=== PATIENT | female | born 1950 | race Caucasian/White ===

== ENCOUNTER 2018-07-08 17:33 | Emergency (ER) | payer MEDICARE, BC, SELFPAY ==
[2018-07-08 17:37] VITALS: BP 147/116; PULSE 96; RESP 16; TEMP 36.7; O2SAT 96
--- NOTE | 2018-07-08 17:40 | W.ED.GENAD ---
Discharge Plan Disposition Patient Disposition: HOME Condition: Stable Discharge Details Chief Complaint: RespSymp Clinical Impression: Asthma exacerbation in COPD Primary Care Provider: Aga Osman ED Provider: Samuel Akins Home Meds and New Rx's Prescriptions: New prednisone 20 mg tablet 20 mg PO DAILY 4 Days Qty: 4 RF: 0 azithromycin 250 mg tablet 250 mg PO DAILY 4 Days Qty: 4 RF: 0 Continued Spiriva with HandiHaler 18 mcg capsule, w/inhalation device 1 cap Inhalation DAILY Qty: 90 RF: 12 Advair Diskus 250-50 mcg/dose blister with device 1 inh Inhalation BID Qty: 180 RF: 12 ipratropium-albuterol [DuoNeb] 3 ML solution for nebulization 3 ml Inhalation QID PRNRF: 0 nebulizers [NasoNeb Nasal Nebulizer] 1 EACH misc 1 ea Miscellaneous PRN RF: 0 lysine [L-Lysine] 500 MG tablet 500 mg PO TID PRNRF: 0 ascorbic acid (vitamin C) [Vitamin C] 500 MG tablet 500 mg PO DAILY RF: 0 ECHINACEA \T\ GOLDENSEAL CAP 1 EACH capsule 1 ea PO DAILY PRNRF: 0 multivitamin [Daily Multiple] 1 EACH tablet 1 ea PO DAILY RF: 0 calcium carbonate-vitamin D3 1 EACH tablet 1 ea PO DAILY RF: 0 cholecalciferol (vitamin D3) [Vitamin D3] 400 UNIT capsule 3 cap PO DAILY RF: 0 albuterol sulfate 8.5 GM HFA aerosol inhaler 2 puff Inhalation QID PRNQty: 3 RF: 12 Flovent HFA 12 GM HFA aerosol inhaler 2 puff Inhalation BID Qty: 3 RF: 12 Discharge Instructions Instructions: COPD (Chronic Obstructive Pulmonary Disease) (ED) Additional Instructions: follow up with your primary care provider within 1 week if you have worsening shortness of breath return to the emergency department for exam Medical Decision Making 67 yo female with hx of copd, former smoker, comes in with chief complaint of shortness of breath and productive cough starting today. Denies recent travel, chest pain/pressure, leg swelling. Has no edema on exam, no calf pain and has findings consistent with copd (wheezing in all lung [place]) so doubt PE at this time. No distant heart sounds so doubt pericardial effusion. Will treat as copd exacerbation with azithromycin/steroids/nebs and also check influenza swab pt only has mild wheezing at the apices bilaterally now, speaking in full sentences, feels well enough to go home. advised f/u with pcp and return precautions given Differential Diagnosis copd, influenza, pna HPI General Mode of arrival: ambulatory. Date/Time Provider Initiated Documentation: 07/08/18 17:34. Limitations to Documentation: no limitations. Information obtained by: patient. History of Present Illness 67 year old F presents to the emergency department with the chief complaint of cough and shortness of breath, described as moderate, Patient started experiencing this hour(s) (6) and it has been constant. No relieving factors improve symptom(s), No exacerbating factors reported . Patient notes no other symptoms.. Patient did receive the following treatments prior to arrival, other (albuterol) Related Data Home Medications Medication Instructions Recorded Confirmed ipratropium-albuterol [DuoNeb] 3 ml INHALATION QID PRN 05/05/13 07/08/18 lysine [L-Lysine] 500 mg PO TID PRN 05/05/13 07/08/18 nebulizers [NasoNeb Nasal ea 05/05/13 06/02/18 Nebulizer] Echinacea \T\ Goldenseal Cap 1 ea PO DAILY PRN 09/01/13 07/08/18 ascorbic acid (vitamin C) [Vitamin 500 mg PO DAILY 09/01/13 07/08/18 C] albuterol sulfate 2 puff INHALATION QID PRN #3 04/19/15 07/08/18 inhaler calcium carbonate-vitamin D3 1 ea PO DAILY 04/19/15 07/08/18 cholecalciferol (vitamin D3) 3 cap PO DAILY 04/19/15 07/08/18 [Vitamin D3] multivitamin [Daily Multiple] 1 ea PO DAILY 04/19/15 07/08/18 Flovent HFA 2 puff INHALATION BID #3 inhaler 10/22/16 07/08/18 fluticasone 250 mcg-salmeterol 50 1 inh INHALATION BID #180 each 06/02/18 07/08/18 mcg/dose blistr powdr for inhalation tiotropium bromide 18 mcg capsule 1 cap INHALATION DAILY #90 inh 06/02/18 07/08/18 with inhalation device azithromycin 250 mg PO DAILY 4 Days #4 tab 07/08/18 prednisone 20 mg PO DAILY 4 Days #4 tab 07/08/18 Previous Rx's Medication Instructions Recorded fluticasone 250 mcg-salmeterol 50 1 inh INHALATION BID #180 each 06/02/18 mcg/dose blistr powdr for inhalation tiotropium bromide 18 mcg capsule 1 cap INHALATION DAILY #90 inh 06/02/18 with inhalation device azithromycin 250 mg PO DAILY 4 Days #4 tab 07/08/18 prednisone 20 mg PO DAILY 4 Days #4 tab 07/08/18 Allergies Allergy/AdvReac Type Severity Reaction Status Date / Time venlafaxine AdvReac Intermediate NAUSEA Unverified 07/08/18 17:41 General Stated Complaint: RespSymp EWELINA: 3 Review of Systems Review of Systems All systems reviewed & are unremarkable except as noted in HPI and below Constitutional Denies weakness ENT Denies change in voice Cardiovascular Denies chest pain Gastrointestinal Denies abdominal pain, Denies nausea and Denies vomiting Genitourinary Denies dysuria Musculoskeletal Denies joint swelling Integumentary/Breasts Denies rash Neurologic Denies weakness [facility] Surgical History Ligation of fallopian tube (~1984) Family History Mother Essential hypertension Hyperlipidemia Father Essential hypertension Heart disease Hyperlipidemia Sister No problems noted. Sister Hyperlipidemia Cancer of skin of leg Brother Essential hypertension Paternal Grandfather Essential hypertension Heart disease Maternal Grandmother Pulmonary emphysema Paternal Grandmother Pulmonary emphysema FAMILY HISTORY Chronic obstructive lung disease Son No problems noted. Daughter No problems noted. Social History current occupational status: retired pets and animals: Yes pets and animals: cat(s) frequency: does not exercise Smoking/Tobacco Use Status: Former Tobacco Use quit date: 05/18/04 alcohol intake: current alcohol intake frequency: a few times a week Alcohol type: beer substance use type: does not use connie/mu-ism: Yazidism special connie needs: No Exam Const General: no acute distress Orientation: alert HENMT Head: normal to inspection Ears: external ears normal General nose exam: external nose normal Mouth: moist mucous membranes Eyes General: appearance normal, both eyes and all related structures Neck Neck: normal visual inspection Resp Effort & Inspection: normal respiratory effort and able to speak in complete sentences Cardio Rate: regular rate Skin General skin exam: no rashes or lesions noted Neuro General: alert and oriented x3 Extrem General: normal to inspection Psych Mental Status: mental status grossly normal Course Vital Signs Temperature 36.7 C 07/08/18 17:37 Pulse 96 H 07/08/18 17:37 Respiratory Rate 16 07/08/18 17:37 Blood Pressure 147/116 H 07/08/18 17:37 Pulse Oximetry 96 07/08/18 17:37 Temperature 36.7 C 07/08/18 17:37 Temperature Source Skin 07/08/18 17:37 Pulse 96 H 07/08/18 17:37 Respiratory Rate 16 07/08/18 17:37 Blood Pressure 147/116 H 07/08/18 17:37 Pulse Oximetry 96 07/08/18 17:37 Pain Level 0 07/08/18 17:37
[2018-07-08 17:44] VITALS: BP 118/76
--- NOTE | 2018-07-08 17:44 | ED.GENADUL_ITS ---
Discharge Plan Disposition Patient Disposition: HOME Condition: Stable Discharge Details Chief Complaint: RespSymp Clinical Impression: Asthma exacerbation in COPD Primary Care Provider: Aga Osman ED Provider: Samuel Akins Home Meds and New Rx's Prescriptions: New prednisone 20 mg tablet 20 mg PO DAILY 4 Days Qty: 4 RF: 0 azithromycin 250 mg tablet 250 mg PO DAILY 4 Days Qty: 4 RF: 0 Continued Spiriva with HandiHaler 18 mcg capsule, w/inhalation device 1 cap Inhalation DAILY Qty: 90 RF: 12 Advair Diskus 250-50 mcg/dose blister with device 1 inh Inhalation BID Qty: 180 RF: 12 ipratropium-albuterol [DuoNeb] 3 ML solution for nebulization 3 ml Inhalation QID PRNRF: 0 nebulizers [NasoNeb Nasal Nebulizer] 1 EACH misc 1 ea Miscellaneous PRN RF: 0 lysine [L-Lysine] 500 MG tablet 500 mg PO TID PRNRF: 0 ascorbic acid (vitamin C) [Vitamin C] 500 MG tablet 500 mg PO DAILY RF: 0 ECHINACEA \T\ GOLDENSEAL CAP 1 EACH capsule 1 ea PO DAILY PRNRF: 0 multivitamin [Daily Multiple] 1 EACH tablet 1 ea PO DAILY RF: 0 calcium carbonate-vitamin D3 1 EACH tablet 1 ea PO DAILY RF: 0 cholecalciferol (vitamin D3) [Vitamin D3] 400 UNIT capsule 3 cap PO DAILY RF: 0 albuterol sulfate 8.5 GM HFA aerosol inhaler 2 puff Inhalation QID PRNQty: 3 RF: 12 Flovent HFA 12 GM HFA aerosol inhaler 2 puff Inhalation BID Qty: 3 RF: 12 Discharge Instructions Instructions: COPD (Chronic Obstructive Pulmonary Disease) (ED) Additional Instructions: follow up with your primary care provider within 1 week if you have worsening shortness of breath return to the emergency department for exam Medical Decision Making 67 yo female with hx of copd, former smoker, comes in with chief complaint of shortness of breath and productive cough starting today. Denies recent travel, chest pain/pressure, leg swelling. Has no edema on exam, no calf pain and has findings consistent with copd (wheezing in all lung [place]) so doubt PE at this time. No distant heart sounds so doubt pericardial effusion. Will treat as copd exacerbation with azithromycin/steroids/nebs and also check influenza swab pt only has mild wheezing at the apices bilaterally now, speaking in full sentences, feels well enough to go home. advised f/u with pcp and return precautions given Differential Diagnosis copd, influenza, pna HPI General Mode of arrival: ambulatory . Date/Time Provider Initiated Documentation: 07/08/18 17:34 . Limitations to Documentation: no limitations . Information obtained by: patient . History of Present Illness 67 year old F presents to the emergency department with the chief complaint of cough and shortness of breath, described as moderate, Patient started experiencing this hour(s) (6) and it has been constant. No relieving factors improve sy mptom(s), No exacerbating factors reported . Patient notes no other symptoms.. Patient did receive the following treatments prior to arrival, other (albuterol) Related Data Home Medications Medication Instructions Recorded Confirmed ipratropium-albuterol [DuoNeb] 3 ml INHALATION QID PRN 05/05/13 07/08/18 lysine [L-Lysine] 500 mg PO TID PRN 05/05/13 07/08/18 nebulizers [NasoNeb Nasal ea 05/05/13 06/02/18 Nebulizer] Echinacea \T\ Goldenseal Cap 1 ea PO DAILY PRN 09/01/13 07/08/18 ascorbic acid (vitamin C) [Vitamin 500 mg PO DAILY 09/01/13 07/08/18 C] albuterol sulfate 2 puff INHALATION QID PRN #3 04/19/15 07/08/18 inhaler calcium carbonate-vitamin D3 1 ea PO DAILY 04/19/15 07/08/18 cholecalciferol (vitamin D3) 3 cap PO DAILY 04/19/15 07/08/18 [Vitamin D3] multivitamin [Daily Multiple] 1 ea PO DAILY 04/19/15 07/08/18 Flovent HFA 2 puff INHALATION BID #3 inhaler 10/22/16 07/08/18 fluticasone 250 mcg-salmeterol 50 1 inh INHALATION BID #180 each 06/02/18 07/08/18 mcg/dose blistr powdr for inhalation tiotropium bromide 18 mcg capsule 1 cap INHALATION DAILY #90 inh 06/02/18 1 09/08/17 with inhalation device azithromycin 250 mg PO DAILY 4 Days #4 tab 07/08/18 prednisone 20 mg PO DAILY 4 Days #4 tab 07/08/18 Previous Rx's Medication Instructions Recorded fluticasone 250 mcg-salmeterol 50 1 inh INHALATION BID #180 each 06/02/18 mcg/dose blistr powdr for inhalation tiotropium bromide 18 mcg capsule 1 cap INHALATION DAILY #90 inh 06/02/18 with inhalation device azithromycin 250 mg PO DAILY 4 Days #4 tab 07/08/18 prednisone 20 mg PO DAILY 4 Days #4 tab 07/08/18 Allergies Allergy/AdvReac Type Severity Reaction Status Date / Time venlafaxine AdvReac Intermediate NAUSEA Unverified 07/08/18 17:41 General Stated Complaint: RespSymp EWELINA: 3 Review of Systems Review of Systems All systems reviewed & are unremarkable except as noted in HPI and below Constitutional Denies weakness ENT Denies change in voice Cardiovascular Denies chest pain Gastrointestinal Denies abdominal pain, Denies nausea and Denies vomiting Genitourinary Denies dysuria Musculoskeletal Denies joint swelling Integumentary/Breasts Denies rash Neurologic Denies weakness PFS Surgical History Ligation of fallopian tube (~1984) Family History Mother Essential hypertension Hyperlipidemia Father Essential hypertension Heart disease Hyperlipidemia Sister No problems noted. Sister Hyperlipidemia Cancer of skin of leg Brother Essential hypertension Paternal Grandfather Essential hypertension Heart disease Maternal Grandmother Pulmonary emphysema Paternal Grandmother Pulmonary emphysema FAMILY HISTORY Chronic obstructive lung disease Son No problems noted. Daughter No problems noted. Social History current occupational status: retired pets and animals: Yes pets and animals: cat(s) frequency: does not exercise Smoking/Tobacco Use Status: Former Tobacco Use quit date: 05/18/04 alcohol intake: current alcohol intake frequency: a few times a week Alcohol type: beer substance use type: does not use connie/confucianism: Sabianist special connie needs: No Exam Const General: no acute distress Orientation: alert HENMT Head: normal to inspection Ears: external ears normal General nose exam: external nose normal Mouth: moist mucous membranes Eyes General: appearance normal, both eyes and all related structures Neck Neck: normal visual inspection Resp Effort & Inspection: normal respiratory effort and able to speak in complete sentences Cardio Rate: regular rate Skin General skin exam: no rashes or lesions noted Neuro General: alert and oriented x3 Extrem General: normal to inspection Psych Mental Status: mental status grossly normal Course Vital Signs Temperature 36.7 C 07/08/18 17:37 Pulse 96 H 07/08/18 17:37 Respiratory Rate 16 07/08/18 17:37 Blood Pressure 147/116 H 07/08/18 17:37 Pulse Oximetry 96 07/08/18 17:37 Temperature 36.7 C 07/08/18 17:37 Temperature Source Skin 07/08/18 17:37 Pulse 96 H 07/08/18 17:37 Respiratory Rate 16 07/08/18 17:37 Blood Pressure 147/116 H 07/08/18 17:37 Pulse Oximetry 96 07/08/18 17:37 Pain Level 0 07/08/18 17:37
[2018-07-08] MEDS: predniSONE 20 MG TAB 60 MG PO (17:55)
[2018-07-08] MEDS: Azithromycin 250 MG TAB 500 MG PO (17:55)
[2018-07-08] MEDS: Albuterol/Ipratropium 3 ML UPD VIAL UPD (18:00)
[2018-07-08 18:30] VITALS: RESP 1
[2018-07-08 18:33] VITALS: BP 122/80; PULSE 92; RESP 16; TEMP 36.7; O2SAT 97
== END 2018-07-08 18:33 | disposition home or self-care (01) ==
PROVIDERS: Emergency Provider Emergency Medicine; PCP Family Medicine
DX: J45.901 Unspecified asthma with (acute) exacerbation (principal); J44.9 Chronic obstructive pulmonary disease, unspecified; Z87.891 Personal history of nicotine dependence
CPT/HCPCS: 87449; 94640; 99283; J7512; J7620

== ENCOUNTER 2018-07-09 00:21 | Outpatient (CLI) | payer MEDICARE, BC, SELFPAY ==
--- NOTE | 2018-07-09 12:47 | DI.CTLCSR_ITS ---
SYMPTOMS/DIAGNOSIS: LUNG CANCER SCREENING, H/O NICOTINE, Z87.[address], LOW DOSE LUNG CANCER SCREENING PROTOCOL: CT examination of the chest was performed utilizing low dose lung cancer screening protocol. Today's examination is a baseline examination. Images obtained through the upper abdomen show very poor definition of retroperitoneal fat planes, retroperitoneal adenopathy or tumor not excluded in the upper abdomen. Correlation with contrast enhanced abdominal and pelvic CT recommended. Visualized portions of the liver, spleen and kidneys are unremarkable. There are marked pulmonary emphysematous changes. Ascending aorta is ectatic at about 4.0 cm maximal diameter. Pulmonary arteries appear mildly dilated centrally, raising the possibility of pulmonary arterial hypertension. No gross mediastinal adenopathy or mass seen. No pleural effusion seen. There are multiple small intrapulmonary nodules, including 5 mm noncalcified nodules of the right lower lobe and left lower lobe. There is a 9 x 5 mm in diameter, 7 mm mean diameter, noncalcified nodule in the left lower lobe. No calcified nodule identified. CONCLUSION: 1. Pulmonary emphysematous changes. 2. Incidental findings inconclusive, but worrisome for incompletely images retroperitoneal mass or adenopathy, recommend additional evaluation with abdominal and pelvic IV and oral contrast opacified CT. 3. Multiple noncalcified intrapulmonary nodules, largest 7 mm mean diameter, probably benign but six-month follow-up LDCT recommended. Category 3. Lung-RAD Category: 3- Probably Benign Lung- RAD Management of Findings: 6 month LDCT followup
== END 2018-07-09 00:41 ==
PROVIDERS: PCP Family Medicine; Visit Provider Internal Medicine
DX: Z12.2 Encounter for screening for malignant neoplasm of respiratory organs (principal); J43.9 Emphysema, unspecified; R91.8 Other nonspecific abnormal finding of lung field; R59.0 Localized enlarged lymph nodes
CPT/HCPCS: G0297

== ENCOUNTER 2018-07-14 00:10 | Outpatient (CLI) | payer MEDICARE, BC, SELFPAY ==
--- NOTE | 2018-07-14 08:12 | DI.CT_ITS ---
SYMPTOM/DIAGNOSIS: F/U ABNL CT SCAN, RETROPERITONEAL MASS, R19.[address]: Comparison is made with low dose screening chest CT of 07/09/18 with questioned retroperitoneal abnormality. Images were performed from the lung bases through the ischial tuberosities after IV and oral contrast. The patient has very little intra-abdominal fat. No retroperitoneal abnormality is identified. The findings on the chest CT correspond to unopacified loops of bowel. The liver, spleen, gallbladder and kidneys are unremarkable. There are a few scattered tiny pancreatic calcifications. The uterus is retroverted. The bladder and ovaries are unremarkable. No bowel dilatation or inflammatory changes are seen. The aorta shows calcification but is normal in diameter. Degenerative changes are seen in the spine. IMPRESSION: No acute abnormality is seen in the abdomen or pelvis. There is no evidence of a retroperitoneal abnormality.
[2018-07-14] MEDS: Breeza Beverage 473 ML BTL PO ×2 (08:41→08:43)
[2018-07-14] MEDS: Omnipaque 350 MG/ML 50 ML BTL IJ (08:42)
[2018-07-14 08:50] LABS: CREATININE 0.78 mg/dL (0.55-1.02)
[2018-07-14] MEDS: Omnipaque 350 MG/ML 100 ML BTL IJ (10:04)
[2018-07-17 15:13] LABS: Alpha-1-Antitrypsin 123 mg/dL (100 - 190); Alpha-1-Antitrypsin Phenotype MS bands
== END 2018-07-14 00:30 ==
PROVIDERS: Internal Medicine; PCP Family Medicine; Visit Provider Family Medicine
DX: R19.00 Intra-abdominal and pelvic swelling, mass and lump, unspecified site (principal); K86.89 Other specified diseases of pancreas; J44.9 Chronic obstructive pulmonary disease, unspecified
CPT/HCPCS: 36415; 74177; 82103; 82104; 82565; J3490; Q9967

== ENCOUNTER 2018-10-28 12:50 | Emergency (ER) | payer MEDICARE, BC, SELFPAY ==
--- NOTE | 2018-10-28 12:50 | W.ED.GENAD ---
Discharge Plan Disposition Patient Disposition: HOME Condition: Stable Discharge Details Chief Complaint: Orthopedic Clinical Impression: Left ankle sprain Primary Care Provider: Aga Osman ED Provider: Samuel Akins Home Meds and New Rx's Prescriptions: No Action azithromycin 250 mg tablet See Rx Instructions PO .COMPLEX Qty: 6 RF: 0 prednisone 20 mg tablet See Rx Instructions PO DAILY Qty: 11 RF: 0 Prevnar 13 (PF) 0.5 mL syringe 0.5 ml IM ONCE Qty: 0.5 RF: 0 Trelegy Ellipta 100-62.5-25 mcg blister with device 1 inh IH DAILY RF: 0 ipratropium-albuterol [DuoNeb] 3 ML solution for nebulization 3 ml Inhalation QID PRNRF: 0 NasoNeb Nasal Nebulizer 1 EACH misc 1 ea Miscellaneous PRN RF: 0 lysine [L-Lysine] 500 MG tablet 500 mg PO TID PRNRF: 0 ascorbic acid (vitamin C) [Vitamin C] 500 MG tablet 500 mg PO DAILY RF: 0 ECHINACEA \T\ GOLDENSEAL CAP 1 EACH capsule 1 ea PO DAILY PRNRF: 0 multivitamin [Daily Multiple] 1 EACH tablet 1 ea PO DAILY RF: 0 calcium carbonate-vitamin D3 1 EACH tablet 1 ea PO DAILY RF: 0 cholecalciferol (vitamin D3) [Vitamin D3] 400 UNIT capsule 3 cap PO DAILY RF: 0 albuterol sulfate 8.5 GM HFA aerosol inhaler 2 puff Inhalation QID PRNQty: 3 RF: 12 Flovent HFA 12 GM HFA aerosol inhaler 2 puff Inhalation BID Qty: 3 RF: 12 Discharge Instructions Instructions: Ankle Sprain (ED) Medical Decision Making 68 yo female comes in with left ankle pain. She tripped on the bottom step in her cellar and twisted her left ankle per pt. Denies hitting head or loc, no headache or neck pain even on rom so do not feel head or neck imaging indicated. She denies any preceding symptoms to suggest presyncope/syncope so do not feel w/u for this inidicated, she states it was purely mechanical. She has pain over the lateral malleolus, does have full rom but with pain and can bear weight but also with pain. No pain over metatarsals. Ssupect sprain but will xray to eval for fx. xray neg on my read, will tx as ankle sprain. Advised f/u with pcp in a week if no improvement. Already has aircast and crutches Differential Diagnosis fx, contusion, sprain, strain Imaging Data Radiologic Study: Attestation: I personally reviewed and interpreted this imaging study as follows: Imaging: X-Ray My impression: no acute findings HPI General Mode of arrival: ambulatory (with crutches). Date/Time Provider Initiated Documentation: 10/28/18 12:50. Limitations to Documentation: no limitations. Information obtained by: patient. History of Present Illness 68 year old F presents to the emergency department with the chief complaint of left ankle pain, described as moderate, Quality is described as aching, and is localized to the left and lower extremity. Patient reports no radiation. Patient started experiencing this hour(s) (1) and it has been constant. Rest improves symptom(s), Movement worsens symptoms . Patient notes no other symptoms.. Related Data Home Medications Medication Instructions Recorded Confirmed NasoNeb Nasal Nebulizer ea 05/05/13 10/07/18 ipratropium-albuterol [DuoNeb] 3 ml INHALATION QID PRN 05/05/13 10/28/18 lysine [L-Lysine] 500 mg PO TID PRN 05/05/13 10/28/18 Echinacea \T\ Goldenseal Cap 1 ea PO DAILY PRN 09/01/13 10/07/18 ascorbic acid (vitamin C) [Vitamin 500 mg PO DAILY 09/01/13 10/28/18 C] albuterol sulfate 2 puff INHALATION QID PRN #3 04/19/15 10/28/18 inhaler calcium carbonate-vitamin D3 1 ea PO DAILY 04/19/15 10/28/18 cholecalciferol (vitamin D3) 3 cap PO DAILY 04/19/15 10/28/18 [Vitamin D3] multivitamin [Daily Multiple] 1 ea PO DAILY 04/19/15 10/28/18 Flovent HFA 2 puff INHALATION BID #3 inhaler 10/22/16 10/28/18 fluticasone fur. 100 mcg-umeclid 1 inh IH DAILY 07/10/18 10/28/18 62.5 mcg-vilant 25 mcg inhalat.powder azithromycin 250 mg tablet See Rx Instructions PO .COMPLEX #6 10/07/18 10/28/18 tab pneumococcal 13-herminio conj 0.5 ml IM ONCE #0.5 ml 10/07/18 10/28/18 vaccine-dip crm (PF) 0.5 mL IM syringe prednisone 20 mg tablet See Rx Instructions PO DAILY #11 10/07/18 10/28/18 tab Previous Rx's Medication Instructions Recorded azithromycin 250 mg tablet See Rx Instructions PO .COMPLEX #6 10/07/18 tab pneumococcal 13-herminio conj 0.5 ml IM ONCE #0.5 ml 10/07/18 vaccine-dip crm (PF) 0.5 mL IM syringe prednisone 20 mg tablet See Rx Instructions PO DAILY #11 10/07/18 tab Allergies Allergy/AdvReac Type Severity Reaction Status Date / Time venlafaxine AdvReac Intermediate NAUSEA Unverified 10/28/18 12:59 General EWELINA: 3 Review of Systems Review of Systems All systems reviewed & are unremarkable except as noted in HPI and below Constitutional Denies fever(s) Eyes Denies loss of vision Cardiovascular Denies chest pain and Denies dyspnea Respiratory Denies dyspnea Gastrointestinal Denies abdominal pain, Denies nausea and Denies vomiting Integumentary/Breasts Denies rash Neurologic Denies loss of vision PFSH Social History Smoking/Tobacco Use Status: Former Tobacco Use Quit Date: 05/18/04 Alcohol Intake: current Alcohol Intake frequency: a few times a week Alcohol type: beer Drug use: Never Substance use type: does not use Pets and animals: Yes Pets and animals: cat(s) Frequency: does not exercise Haley/Yazidi: Episcopal Special haley needs: No Do you feel safe in your relationship?: Yes Exam Const General: no acute distress Orientation: alert [facility] Head: normal to inspection Ears: external ears normal General nose exam: external nose normal Mouth: moist mucous membranes Eyes General: appearance normal, both eyes and all related structures Neck Neck: normal visual inspection Resp Effort & Inspection: normal respiratory effort and able to speak in complete sentences Cardio Rate: regular rate Skin General skin exam: no rashes or lesions noted Neuro General: alert and oriented x3 Extrem General: normal to inspection and normal capillary refill Psych Mental Status: mental status grossly normal
[2018-10-28 12:55] VITALS: BP 132/80; PULSE 97; RESP 16; TEMP 37; O2SAT 100
--- NOTE | 2018-10-28 13:06 | ED.GENADUL_ITS ---
Discharge Plan Disposition Patient Disposition: HOME Condition: Stable Discharge Details Chief Complaint: Orthopedic Clinical Impression: Left ankle sprain Primary Care Provider: Aga Osman ED Provider: Samuel Akins Home Meds and New Rx's Prescriptions: No Action azithromycin 250 mg tablet See Rx Instructions PO .COMPLEX Qty: 6 RF: 0 prednisone 20 mg tablet See Rx Instructions PO DAILY Qty: 11 RF: 0 Prevnar 13 (PF) 0.5 mL syringe 0.5 ml IM ONCE Qty: 0.5 RF: 0 Trelegy Ellipta 100-62.5-25 mcg blister with device 1 inh IH DAILY RF: 0 ipratropium-albuterol [DuoNeb] 3 ML solution for nebulization 3 ml Inhalation QID PRNRF: 0 NasoNeb Nasal Nebulizer 1 EACH misc 1 ea Miscellaneous PRN RF: 0 lysine [L-Lysine] 500 MG tablet 500 mg PO TID PRNRF: 0 ascorbic acid (vitamin C) [Vitamin C] 500 MG tablet 500 mg PO DAILY RF: 0 ECHINACEA \T\ GOLDENSEAL CAP 1 EACH capsule 1 ea PO DAILY PRNRF: 0 multivitamin [Daily Multiple] 1 EACH tablet 1 ea PO DAILY RF: 0 calcium carbonate-vitamin D3 1 EACH tablet 1 ea PO DAILY RF: 0 cholecalciferol (vitamin D3) [Vitamin D3] 400 UNIT capsule 3 cap PO DAILY RF: 0 albuterol sulfate 8.5 GM HFA aerosol inhaler 2 puff Inhalation QID PRNQty: 3 RF: 12 Flovent HFA 12 GM HFA aerosol inhaler 2 puff Inhalation BID Qty: 3 RF: 12 Discharge Instructions Instructions: Ankle Sprain (ED) Medical Decision Making 68 yo female comes in with left ankle pain. She tripped on the bottom step in her cellar and twisted her left ankle per pt. Denies hitting head or loc, no headache or neck pain even on rom so do not feel head or neck imaging indicated. She denies any preceding symptoms to suggest presyncope/syncope so do not feel w/u for this inidicated, she states it was purely mechanical. She has pain over the lateral malleolus, does have full rom but with pain and can bear weight but also with pain. No pain over metatarsals. Ssupect sprain but will xray to eval for fx. xray neg on my read, will tx as ankle sprain. Advised f/u with pcp in a week if no improvement. Already has aircast and crutches Differential Diagnosis fx, contusion, sprain, strain Imaging Data Radiologic Study: Attestation: I personally reviewed and interpreted this imaging study as follows: Imaging: X-Ray My impression: no acute findings HPI General Mode of arrival: ambulatory (with crutches) . Date/Time Provider Initiated Documentation: 10/28/18 12:50 . Limitations to Documentation: no limitations . Information obtained by: patient . History of Present Illness 68 year old F presents to the emergency department with the chief complaint of left ankle pain, described as moderate, Quality is described as aching, and is localized to the left and lower extremity. Patient reports no radiation. Patient started experiencing this hour(s) (1) and it has been constant. Rest improves symptom(s), Movement worsens symptoms . Patient notes no other symptoms.. Related Data Home Medications Medication Instructions Recorded Confirmed NasoNeb Nasal Nebulizer ea 05/05/13 10/07/18 ipratropium-albuterol [DuoNeb] 3 ml INHALATION QID PRN 05/05/13 10/28/18 lysine [L-Lysine] 500 mg PO TID PRN 05/05/13 10/28/18 Echinacea \T\ Goldenseal Cap 1 ea PO DAILY PRN 09/01/13 10/07/18 ascorbic acid (vitamin C) [Vitamin 500 mg PO DAILY 09/01/13 10/28/18 C] albuterol sulfate 2 puff INHALATION QID PRN #3 04/19/15 10/28/18 inhaler calcium carbonate-vitamin D3 1 ea PO DAILY 04/19/15 10/28/18 cholecalciferol (vitamin D3) 3 cap PO DAILY 04/19/15 10/28/18 [Vitamin D3] multivitamin [Daily Multiple] 1 ea PO DAILY 04/19/15 10/28/18 Flovent HFA 2 puff INHALATION BID #3 inhaler 10/22/16 10/28/18 fluticasone fur. 100 mcg-umeclid 1 inh IH DAILY 07/10/18 10/28/18 62.5 mcg-vilant 25 mcg inhalat.powder azithromycin 250 mg tablet See Rx Instructions PO .COMPLEX #6 10/07/18 10/28/18 tab pneumococcal 13-herminio conj 0.5 ml IM ONCE #0.5 ml 10/07/18 10/28/18 vaccine-dip crm (PF) 0.5 mL IM syringe prednisone 20 mg tablet See Rx Instructions PO DAILY #11 10/07/18 10/28/18 tab Previous Rx's Medication Instructions Recorded azithromycin 250 mg tablet See Rx Instructions PO .COMPLEX #6 10/07/18 tab pneumococcal 13-herminio conj 0.5 ml IM ONCE #0.5 ml 10/07/18 vaccine-dip crm (PF) 0.5 mL IM syringe prednisone 20 mg tablet See Rx Instructions PO DAILY #11 10/07/18 tab Allergies Allergy/AdvReac Type Severity Reaction Status Date / Time venlafaxine AdvReac Intermediate NAUSEA Unverified 10/28/18 12:59 General EWELINA: 3 Review of Systems Review of Systems All systems reviewed & are unremarkable except as noted in HPI and below Constitutional Denies fever(s) Eyes Denies loss of vision Cardiovascular Denies chest pain and Denies dyspnea Respiratory Denies dyspnea Gastrointestinal Denies abdominal pain, Denies nausea and Denies vomiting Integumentary/Breasts Denies rash Neurologic Denies loss of vision PFSH Social History Smoking/Tobacco Use Status: Former Tobacco Use Quit Date: 05/18/04 Alcohol Intake: current Alcohol Intake frequency: a few times a week Alcohol type: beer Drug use: Never Substance use type: does not use Pets and animals: Yes Pets and animals: cat(s) Frequency: does not exercise Haley/Scientology: Mosque Special haley needs: No Do you feel safe in your relationship?: Yes Exam Const General: no acute distress Orientation: alert [facility] Head: normal to inspection Ears: external ears normal General nose exam: external nose normal Mouth: moist mucous membranes Eyes General: appearance normal, both eyes and all related structures Neck Neck: normal visual inspection Resp Effort & Inspection: normal respiratory effort and able to speak in complete sentences Cardio Rate: regular rate Skin General skin exam: no rashes or lesions noted Neuro General: alert and oriented x3 Extrem General: normal to inspection and normal capillary refill Psych Mental Status: mental status grossly normal
--- NOTE | 2018-10-28 13:18 | DI.RAD_ITS ---
SYMPTOMS/DIAGNOSIS: PAIN S/P FALL LEFT ANKLE: There is no evidence of a fracture or dislocation.
== END 2018-10-28 13:35 | disposition home or self-care (01) ==
PROVIDERS: Emergency Provider Emergency Medicine; PCP Family Medicine
DX: S93.402A Sprain of unspecified ligament of left ankle, initial encounter (principal)
CPT/HCPCS: 99283; 73610; 99282

== ENCOUNTER 2018-11-10 16:45 | Outpatient (CLI) | payer MEDICARE, BC, SELFPAY ==
--- NOTE | 2018-11-10 15:30 | DI.RAD_ITS ---
SYMPTOMS/DIAGNOSIS: SHORTNESS OF BREATH, CHRONIC OBSTRUCTIVE LUNG DISEASE, J44.9 PA AND LATERAL CHEST: Comparison 02/14/17. The heart size and pulmonary vasculature are stable and within normal limits. The lungs appear hyperinflated and hyperlucent with flattened diaphragms suggesting underlying COPD. There are increased interstitial markings in the left lung base compared to the prior examination. No focal consolidating infiltrates, effusions or pneumothoraces are identified. Mild degenerative changes are seen in the spine. IMPRESSION: 1. Increased interstitial markings in the left lower lobe. This may represent pneumonia or atelectasis. Chronic interstitial disease can not be excluded. 2. COPD.
== END 2018-11-10 17:05 ==
PROVIDERS: PCP Family Medicine; Visit Provider Family Medicine
DX: R06.02 Shortness of breath (principal); J44.9 Chronic obstructive pulmonary disease, unspecified; J98.4 Other disorders of lung
CPT/HCPCS: 71046

== ENCOUNTER 2018-11-12 01:18 | Outpatient (CLI) | payer MEDICARE, BC, SELFPAY ==
--- NOTE | 2018-11-12 13:00 | DI.CT_ITS ---
SYMPTOMS/DIAGNOSIS: COPD, J44.9 CT SCAN OF THE CHEST: CT scan of the chest was performed without intravenous contrast material. Comparison is 07/09/18. There is atherosclerosis of the thoracic aorta which is unchanged in size. There is again seen prominence of the pulmonary arteries which may represent some degree of pulmonary artery hypertension. The heart size is within normal limits. No significant pericardial effusion is seen. No pleural effusion or pneumothorax is identified. Multiple hyperdense lesions are seen throughout the thyroid gland. Thyroid ultrasound may be obtained for further evaluation. No significant thoracic adenopathy is appreciated. The upper abdominal images show calcifications within the pancreas which may reflect chronic pancreatitis. Centrilobular emphysematous changes are seen in the lungs. There are again seen a few noncalcified pulmonary nodules. These are present in the right upper lobe and right and left lower lobes. These are unchanged in size compared to 07/09/18. No new pulmonary nodules are appreciated. The tracheobronchial tree is unremarkable. Scarring or atelectatic changes are again seen in the left lingula. They appear somewhat improved compared to the prior examination. No new focal consolidating infiltrates are present in the lungs. There are degenerative changes seen in the spine. IMPRESSION: 1. Stable pulmonary nodules since 07/09/18. 2. Pulmonary emphysematous change. 3. Multiple thyroid nodules. Nonemergent ultrasound of the thyroid gland may be considered for further evaluation.
== END 2018-11-12 01:38 ==
PROVIDERS: PCP Family Medicine; Visit Provider Internal Medicine
DX: J44.9 Chronic obstructive pulmonary disease, unspecified (principal); R91.8 Other nonspecific abnormal finding of lung field; E04.2 Nontoxic multinodular goiter; K86.89 Other specified diseases of pancreas; J43.9 Emphysema, unspecified
CPT/HCPCS: 71250

== ENCOUNTER 2019-02-09 00:29 | Outpatient (CLI) | payer MEDICARE, BC, SELFPAY ==
--- NOTE | 2019-02-09 13:00 | DI.MAMMO_ITS ---
SYMPTOM/DIAGNOSIS: SCREENING Z12.31 MAMMOGRAMS: Mammograms were interpreted according to the usual protocol including computer analysis with CAD system, tomosynthesis and C view imaging. Comparison with prior examinations. Breast density category D. No suspicious masses or microcalcifications are seen. There is no definite evidence of malignancy. IMPRESSION: Category 1, negative mammogram. Routine screening is recommended. Breast density category D. MQSA ASSESSMENT OF FINDINGS: Negative. Category 1. Patient will receive a letter notifying them of these results. BI-RADS category D. The breasts are extremely dense, which lowers the sensitivity of mammography.
--- NOTE | 2019-02-09 13:00 | DI.US_ITS ---
SYMPTOM/DIAGNOSIS: THYROID NODULE ON CT SCAN OF CHEST. E04.1 THYROID ULTRASOUND: Routine examination was performed. The right lobe measures 4.8 x 1.8 x 1.6 cm. The left lobe measures 4.5 x 1.9 x 1.6 cm. There are numerous thyroid nodules present. The largest on the right is seen in the upper pole and measures 1.1 x 0.8 x 1.0 cm. It is complex with multiple septations. There is some blood flow seen predominantly peripherally. It is well circumscribed. There is a complex mass in the lower pole which measures 1.1 x 0.6 x 1.1 cm. It is predominantly cystic with internal septations. There is some blood flow noted. No associated calcification is seen. It is well circumscribed. There is a 0.6 x 0.6 x 0.8 cm nodule in the mid pole which is mostly cystic but does contain a solid component. There is peripheral vascularity noted. It is well circumscribed. No internal calcification is seen, On the left the largest nodule is seen inferiorly and measures 1.5 x 0.9 x 0.8 cm It is predominantly cystic with internal septations and some blood flow is noted. Several cystic and solid masses are seen in the left lobe. IMPRESSION: Multinodular thyroid gland without definite suspicious nodule seen. The largest on the left measures 1.5 x 0.9 x 0.8 cm. The largest on the right measures 1.1 x 0.6 x 1.1 cm. Follow up ultrasound may be considered to document stability of the nodules.
[2019-02-09 13:25] LABS: TSH (W/Ref FT4) 0.64 uIU/mL (0.36-3.74)
== END 2019-02-09 00:49 ==
PROVIDERS: PCP Family Medicine; Visit Provider Family Medicine
DX: Z12.31 Encounter for screening mammogram for malignant neoplasm of breast (principal); E04.2 Nontoxic multinodular goiter
CPT/HCPCS: 36415; 77063; 77067; 76536; 84443

== ENCOUNTER 2019-06-14 09:25 | Emergency (ER) | payer MEDICARE, BC, SELFPAY ==
[2019-06-14 09:29] VITALS: BP 185/70; PULSE 66; RESP 20; TEMP 35.6; O2SAT 100
--- NOTE | 2019-06-14 10:19 | ED.GENADUL_ITS ---
Discharge Plan Disposition Patient Disposition: HOME Condition: Good Discharge Details Chief Complaint: Laceration Clinical Impression: Laceration Primary Care Provider: Aga Osman ED Provider: Jo Bryant Home Meds and New Rx's Prescriptions: No Action prednisone 20 mg tablet 20 mg PO DAILY PRNRF: 0 Trelegy Ellipta 100-62.5-25 mcg blister with device 1 inh IH DAILY Qty: 90 RF: 4 ipratropium-albuterol [DuoNeb] 3 ML solution for nebulization 3 ml Inhalation QID PRNRF: 0 (DME) NasoNeb Nasal Nebulizer 1 EACH misc 1 ea Miscellaneous PRN RF: 0 lysine [L-Lysine] 500 MG tablet 500 mg PO TID PRNRF: 0 ascorbic acid (vitamin C) [Vitamin C] 500 MG tablet 500 mg PO DAILY RF: 0 ECHINACEA \T\ GOLDENSEAL CAP 1 EACH capsule 1 ea PO DAILY PRNRF: 0 multivitamin [Daily Multiple] 1 EACH tablet 1 ea PO DAILY RF: 0 calcium carbonate-vitamin D3 1 EACH tablet 1 ea PO DAILY RF: 0 cholecalciferol (vitamin D3) [Vitamin D3] 400 UNIT capsule 3 cap PO DAILY RF: 0 albuterol sulfate 8.5 GM HFA aerosol inhaler 2 puff Inhalation QID PRNQty: 3 RF: 12 Flovent HFA 110 mcg/actuation HFA aerosol inhaler 2 puff Inhalation BID PRNQty: 3 RF: 12 Discharge Instructions Instructions: Laceration (ED) Additional Instructions: Keep initial dressing in place for 2 days, keep clean and dry. Then remove and begin to care for your wound. Wash wound with gentle soap and water once or twice daily. Pat dry or air dry completely then apply a small amount of topical antibiotic ointment to the wound. Keep dressing either Band-Aid or gauze in place open wound Suture removal in 10 to 14 days. Observe for any signs of infection. Return immediately for any concerns of infection. Return for any worsening or concerns sooner if needed Discharge Data Discharge Date/Time-TO BE ENTERED AT DEPARTURE: 06/14/19 11:07 Medical Decision Making Very pleasant 68-year-old woman who sustained a right finger laceration while chopping wood with a hatchet. Patient sustained a laceration to the dorsal aspect of the right second finger PIP joint. No deep space involvement. Nothing to indicate extensor tendon injury. No joint pain with palpation. Sensation intact distally. Patient's wound was extensively irrigated after local anesthesia. 5 sutures placed with good wound approximation. Birdcage placed. Wound care discussed. Precautions for infection discussed. The patient was stable and requested discharge. Prior to discharge, my usual and customary return precautions were reviewed with the patient - this included follow-up instructions and reasons to return to the Emergency Department if conditions worsens, does not improve as expected, or other new concerns arise. HPI General Date/Time Provider Initiated Documentation: 06/14/19 10:02 . HPI Narrative: Is a 68-year-old woman who presents for a laceration to her right third digit over the PIP joint. Patient's tetanus is up-to-date. Patient denies numbness, tingling or weakness. Patient was splitting a small piece of kindling and accidentally sliced the dorsal aspect of her PIP joint. Patient has no limited flexion or extension. No other concerns or complaints at this time. Related Data Home Medications Medication Instructions Recorded Confirmed NasoNeb Nasal Nebulizer ea 05/05/13 06/08/19 ipratropium-albuterol [DuoNeb] 3 ml INHALATION QID PRN 05/05/13 06/14/19 lysine [L-Lysine] 500 mg PO TID PRN 05/05/13 06/14/19 Echinacea \T\ Goldenseal Cap 1 ea PO DAILY PRN 09/01/13 06/14/19 ascorbic acid (vitamin C) [Vitamin 500 mg PO DAILY 09/01/13 06/14/19 C] albuterol sulfate 2 puff INHALATION QID PRN #3 04/19/15 06/14/19 inhaler calcium carbonate-vitamin D3 1 ea PO DAILY 04/19/15 06/14/19 cholecalciferol (vitamin D3) 3 cap PO DAILY 04/19/15 06/14/19 [Vitamin D3] multivitamin [Daily Multiple] 1 ea PO DAILY 04/19/15 06/14/19 fluticasone fur. 100 mcg-umeclid 1 inh IH DAILY #90 each 06/08/19 06/14/19 62.5 mcg-vilant 25 mcg inhalat.powder fluticasone propionate 110 2 puff INHALATION BID PRN #3 06/08/19 06/14/19 mcg/actuation HFA aerosol inhaler inhaler prednisone 20 mg tablet 20 mg PO DAILY PRN tab 06/08/19 06/14/19 Previous Rx's Medication Instructions Recorded fluticasone fur. 100 mcg-umeclid 1 inh IH DAILY #90 each 06/08/19 62.5 mcg-vilant 25 mcg inhalat.powder Allergies Allergy/AdvReac Type Severity Reaction Status Date / Time venlafaxine AdvReac Intermediate NAUSEA Unverified 06/14/19 09:32 General Stated Complaint: Laceration EWELINA: 4 Review of Systems All systems reviewed & are unremarkable except as noted in HPI and below Musculoskeletal Musculoskeletal: Denies joint swelling and Denies limited range of motion Integumentary/Breasts Skin/Breast: Reports wounds [facility] Medical History Chronic obstructive lung disease (Chronic 06/13/95) CONfirmed in 2003; PFT: FEV-1.15, 49%; moderate obstruction/severe small airway 03/2007-PFT: FEV 42%; severe obstructive disease alpha antitrypsin Ab normal Depressive disorder (Resolved 06/13/95) Deviated nasal septum (Chronic) Dyshidrotic eczema (Resolved 06/13/00) Fracture of ankle (Resolved 12/29/09) Fracture of fibula (Resolved) Herpes zoster (Resolved 06/13/06) Impaired fasting glucose (Resolved) Osteoporosis (Chronic) 2003: -3.4/-2.8/-3.0; 2005: -2.7/-2.6/-2.8 Pain of right thumb (Resolved 10/17/15) Restless legs syndrome (Resolved) no treatement presently Sprain of sternum (Resolved 12/29/09) Tobacco use disorder (Inactive) Surgical History (Updated 12/18/18 @ 15:20 by Aga Osman MD, [place]) Ligation of fallopian tube (~1984) Family History (Updated 06/09/19 @ 07:35 by Brady Pena) Mother Essential hypertension Hyperlipidemia Father Essential hypertension Heart disease LEAKY VALVE-AV REPLACEMENT Hyperlipidemia Sister No problems noted. Sister Hyperlipidemia Cancer of skin of leg Brother Essential hypertension Paternal Grandfather , AGE 83 Essential hypertension Heart disease Maternal Grandmother , AGE 77 Pulmonary emphysema Paternal Grandmother , AGE 69 Pulmonary emphysema FAMILY HISTORY Chronic obstructive lung disease Son No problems noted. Daughter No problems noted. Social History Smoking/Tobacco Use Status: Former Tobacco Use Quit Date: 05/18/04 Alcohol Intake: current Alcohol Intake frequency: a few times a week Alcohol type: beer Drug use: Never Substance use type: does not use Caregiver/Support person: No Household members: none Housing: house Pets and animals: Yes Pets and animals: cat(s) Sexually active: No Do you think of yourself as: straight/heterosexual Current gender identity: female What is your relationship status?: How often do you talk on the phone with friends or family?: twice per week How often do you get together with friends or relatives?: twice per week How often do you attend taoism or lutheran services?: decline to answer Do you belong to any clubs or organized social groups?: no Panel score (0-1 are the most socially isolated patients): 1 What type of physical activity do you participate in: none Frequency: does not exercise Haley/Amish: Mormon Special haley needs: No Seatbelt use: always 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 Well hydrated. Alert and alert. MUSCULOSKELETAL: Patient with right second digit laceration over the dorsal aspect of the PIP joint curvilinear. Flexion-extension intact. No deep joint involvement. Nothing to indicate tendon involvement. Distal sensation intact. No bony pain with palpation SKIN: Laceration see above NEURO: Alert and awake. Speech clear. PSYCH: Normal affect. Cooperative. Course Vital Signs Vital signs: Vital Signs Temperature 35.6 C L 06/14/19 09:29 Pulse 66 06/14/19 09:29 Respiratory Rate 20 06/14/19 09:29 Blood Pressure 185/70 H 06/14/19 09:29 Pulse Oximetry 100 06/14/19 09:29 Temperature 35.6 C L 06/14/19 09:29 Temperature Source Skin 06/14/19 09:29 Pulse 66 06/14/19 09:29 Respiratory Rate 20 06/14/19 09:29 Respiratory Effort 06/14/19 09:29 Blood Pressure 185/70 H 06/14/19 09:29 Blood Pressure Position Sitting 06/14/19 09:29 Pulse Oximetry 100 06/14/19 09:29 Oxygen Delivery Method Room Air 06/14/19 09:29 Oxygen Flow Rate 0 06/14/19 09:29 Pain Level 8 06/14/19 09:29 Procedures Laceration Right second digit: Site: hand Side (If applicable): right Size (cm): 2 Description: flap Depth: simple, single layer Local Anesthetic: Lidocaine 1% Amount of anesthesia used (mL): 2 Pre-repair: wound explored, irrigated extensively and deep structures intact Skin layer closed with: other (prolene) Size (cm): 4-0 Number of sutures: 5 Technique: simple, interrupted
[2019-06-14 11:10] VITALS: BP 151/86; PULSE 64; RESP 18; O2SAT 98
== END 2019-06-14 11:07 | disposition home or self-care (01) ==
PROVIDERS: Emergency Provider Physician Assistant; PCP Family Medicine
DX: S61.210A Laceration without foreign body of right index finger without damage to nail, initial encounter (principal); W26.8XXA Contact with other sharp object(s), not elsewhere classified, initial encounter
CPT/HCPCS: 12001

== ENCOUNTER 2019-08-17 01:32 | Outpatient (CLI) | payer MEDICARE, BC, SELFPAY ==
--- NOTE | 2019-08-17 13:06 | DI.US_ITS ---
EXAM: US THYROID CLINICAL HISTORY: MULTINODULAR NODULE - ASSESS STABILITY, THYROID NODULE, E04.1, NONTOXIC. TECHNIQUE: Ultrasound thyroid performed using standard protocol. COMPARISON: US thyroid from 02/09/2019 FINDINGS: ISTHMUS: 3 mm RIGHT LOBE: Size: 5 x 2.1 x 1.8 cm Echogenicity: Normal. Vascularity: Normal. Nodules: Multiple nodules. Nodules are smoothly marginated, without echogenic foci and range from co mpletely cystic to mixed cystic and solid. LEFT LOBE: Size: 4.6 x 2 x 1.9 cm Echogenicity: Normal. Vascularity: Normal. Nodules: Multiple nodules. Nodules are smoothly marginated, without echogenic foci and range from co mpletely cystic to mixed cystic and solid. OTHER FINDINGS: None. IMPRESSION: Multinodular thyroid gland. No suspicious nodules are identified.
== END 2019-08-17 01:52 ==
PROVIDERS: PCP Family Medicine; Visit Provider Family Medicine
DX: E04.2 Nontoxic multinodular goiter (principal)
CPT/HCPCS: 76536

== ENCOUNTER 2021-02-21 10:40 | Outpatient (CLI) | payer MEDICARE, BC, SELFPAY ==
[2021-02-21 12:36] LABS: ALT 31 U/L (14-59); AST 25 U/L (15-37); Albumin 3.8 g/dL (3.4-5.0); Alkaline Phosphatase 58 U/L (46-116); Anion Gap 9.9 mmol/L (3-11); BUN 16 mg/dL (7-18); Bilirubin, Total 0.5 mg/dL (0.2-1.0); CO2 25.1 mmol/L (21.0-32.0); CREATININE 0.8 mg/dL (0.55-1.02); Chloride 109 mmol/L (98-107); Glucose 95 mg/dL (74-106); Potassium 4.3 mmol/L (3.5-5.1); Sodium 144 mmol/L (136-145); Total Protein 6.7 g/dL (6.4-8.2)
[2021-02-23 01:22] LABS: Vitamin D 25 Total 45.1 ng/mL (30-100)
== END 2021-02-21 10:41 | disposition home or self-care (01) ==
LOC: LOS 10:41
PROVIDERS: PCP Family Medicine; Referring Provider Family Medicine; Visit Provider Family Medicine
DX: J44.9 Chronic obstructive pulmonary disease, unspecified (principal); M81.0 Age-related osteoporosis without current pathological fracture
CPT/HCPCS: 36415; 80053; 82306

== ENCOUNTER 2022-07-10 10:47 | Outpatient (CLI) | payer MEDICARE, BC, SELFPAY ==
--- NOTE | 2022-07-10 10:45 | RT.EKG_ITS ---
APPROVED REPORT Exam: Resting ECG Reason for Exam: Cataract surgery Patient Location: O HR:61 bpm ECG Measurements Heart Rate 61 AXIS WI 132 P 79 QRSd 77 QRS 59 QT 399 T -49 QTc 402 Conclusion Sinus rhythm...normal P axis, V-rate 50- 99 Nonspecific T abnormalities, inferior leads...T <-0.10mV, II III aVF
== END 2022-07-10 10:48 | disposition home or self-care (01) ==
LOC: DI.CM 10:49
PROVIDERS: PCP Family Medicine; Visit Provider Family Medicine
DX: I49.9 Cardiac arrhythmia, unspecified (principal); Z01.818 Encounter for other preprocedural examination
CPT/HCPCS: 93010

== ENCOUNTER 2022-07-23 07:59 | Day surgery (SDC) | payer MEDICARE, BC, SELFPAY ==
[2022-07-23 08:52] VITALS: BP 127/82; PULSE 79; RESP 18; TEMP 36.6; O2SAT 100
[2022-07-23] MEDS: Tropicam./Phenyleph. (1/2.5%) 5 ML BTL OS ×3 (09:00→09:21)
--- NOTE | 2022-07-23 09:04 | ANES.PREOP_ITS ---
General Info Date of Service Date Performed: 07/23/22 Height: 5 ft 1 in Weight: 42.5 kg Body Mass Index (BMI): 17.6 Surgical Procedure: Operation Date: 07/23/22 09:55 Proposed Procedure Side Surgeon p Cataract Extraction with IOL Implant Left Yo Epstein MD Meds Allergies and Home Medications Allergies Allergy/AdvReac Type Severity Reaction Status Date / Time venlafaxine AdvReac Intermediate NAUSEA Unverified 07/23/22 09:30 Home Medication Medication Instructions Recorded lysine 500 mg tablet (L-Lysine) 500 mg PO TID PRN 05/05/13 Echinacea \T\ Goldenseal Cap 1 ea PO DAILY PRN 09/01/13 ascorbic acid (vitamin C) 500 mg 500 mg PO DAILY 09/01/13 tablet (Vitamin C) calcium carbonate 600 mg-vitamin 1 ea PO DAILY 04/19/15 D3 5 mcg (200 unit) tablet cholecalciferol (vitamin D3) 10 3 cap PO DAILY 04/19/15 mcg (400 unit) capsule (Vitamin D3) multivitamin (Daily Multiple 1 ea PO DAILY 04/19/15 tablet) nebulizers (NasoNeb Nasal 06/26/19 Nebulizer [facility] [place] vit C,E,zinc,copper-eonxr5f 250 1 cap PO DAILY 02/18/20 mg-lutein 5 mg-zeaxanthin 1 mg capsule (Ocuvite Adult 50 Plus) LIONS TERRENCE PO 07/20/21 PERMILUNG INNOVITE PO 07/20/21 GILDA-EX INNOVITA PO PRN 07/20/21 hydrocodone-homatropine 5 mg-1.5 5 ml PO Q6H PRN cough #200 mL 07/20/21 mg/5 mL oral syrup magnesium 200 mg tablet 200 mg PO DAILY PRN 07/20/21 fluticasone fur. 100 mcg-umeclid 1 inh inhalation DAILY #90 ea 01/08/22 62.5 mcg-vilant 25 mcg inhalat.powder (Trelegy Ellipta) albuterol sulfate 90 mcg/actuation 2 puff inhalation QID PRN 07/10/22 aerosol inhaler bronchospasm ##3 amlodipine 5 mg tablet 5 mg PO DAILY #90 tabs 07/10/22 azithromycin 250 mg tablet See Rx Instructions PO .COMPLEX #6 07/10/22 tabs fluticasone propionate 110 2 puff inhalation BID PRN 07/10/22 mcg/actuation HFA aerosol inhaler bronchospasm ##3 (Flovent HFA) prednisone 20 mg tablet 20 mg PO DAILY PRN sob #20 tabs 07/10/22 Current Visit Medications: Current Medications Generic Name Dose Route Start Last Admin Trade Name Freq PRN Reason Stop Dose Admin Acetaminophen 1,000 mg 07/23/22 06:00 Acetaminophen 500 Mg Tab PO Q4H PRN PRN Miscellaneous Medication 0 ml 07/23/22 06:00 Prednisolone 1%, Moxifloxacin 0.5%, Nepafenac 0.1% 5ml Btl OS DIRECTED CARLOS Miscellaneous Medication 0 ml 07/23/22 06:00 07/23/22 09:00 Tropicam./Phenyleph. (1/2.5%) 5 Ml Btl OS 1 drp DIRECTED CARLOS Administration Tetracaine HCl 0 ml 07/23/22 06:00 Tetracaine 0.5% 4 Ml Btl OS DIRECTED CARLOS PFSH Active Problems Active Problems: Problem Status Onset Code Cortical cataract of left eye H26.9 Nuclear sclerotic cataract of left eye H25.12 Thyroid nodule E04.1 Osteoporosis M81.0 Deviated nasal septum J34.2 Chronic obstructive lung disease 06/13/95 J44.9 Medical History Medical History Depressive disorder (06/13/95) Dyshidrotic eczema (06/13/00) Fracture of ankle (12/29/09) Fracture of fibula Herpes zoster (06/13/06) Impaired fasting glucose Pain of right thumb (10/17/15) Restless legs syndrome no treatement presently Sprain of sternum (12/29/09) Tobacco use disorder Surgical History Surgical History Ligation of fallopian tube (~1984) Tobacco Smoking/Tobacco Use Status: Former Tobacco Use Passive smoking exposure: Yes Alcohol Alcohol Intake: current Alcohol intake frequency: a few times a week Alcohol type: beer Substance Use Substance use: Never Substance use type: does not use Vital Signs and Lab Results Vital Signs Most Recent Vital Signs in EMR: Most Recent Vital Signs Temp Pulse Resp BP Pulse Ox 36.6 C 79 18 127/82 100 07/23/22 08:52 07/23/22 08:52 07/23/22 08:52 07/23/22 08:52 07/23/22 08:52 Lab Results Blood Type / Crossmatch: No Data to Display Complete Blood Count: No Data to Display Complete Metabolic Panel: No Data to Display Liver Function Panel: No Data to Display Coagulation Panel: No Data to Display Cardiac Panel: No Data to Display Arterial Blood Gas: No Data to Display Venous Blood Gas: No Data to Display Pancreas Panel: No Data to Display Thyroid Panel: No Data to Display Infectious Disease: No Data to Display Blood Cultures: No Data to Display Toxicology Panel: No Data to Display Imaging and Studies Imaging and Studies Study information below may be from another EMR and interpreted by another provider. Please see original notes in EMR for more complete details. EKG Summary: 07/10/2022: Exam: Resting ECG Reason for Exam: Cataract surgery Patient Location: O HR:61 bpm ECG Measurements Heart Rate 61 AXIS DC 132 P 79 QRSd 77 QRS 59 QT 399 T-49 QTc 402 Conclusion Sinus rhythm...normal P axis, V-rate 50- 99 Nonspecific T abnormalities, inferior leads...T <-0.10mV, II III aVF Echocardiogram Summary: 12/11/2017: Summary: 1. Left ventricle: The cavity size was normal. Wall thickness was normal. Systolic function was normal. The estimated ejection fraction was 55-60%. Wall motion was normal; there were no regional wall motion abnormalities. 2. Aortic valve: Trileaflet; mildly thickened leaflets. There was mild regurgitation. 3. Right ventricle: The cavity size was normal. Wall thickness was normal. Systolic function was normal. Pulmonary Function Summary: 12/04/2017: Spirometry shows severe obstructive airways disease with some, but not significant, bronchodilator response. Lung volumes show no evidence of restriction. There is mild hyperinflation and air trapping. Diffusion capacity severely reduced which is moderately reduced when corrected to alveolar volume. Airways resistance normal. IMPRESSION: Severe obstructive airways disease with some, but not significant, bronchodilator response. This is associated with mild hyperinflation and air trapping and severe diffusion defect. When this study was compared to previous ones from 03/20/07 and 03/22/11, the patient has a total of 170 cc's decline in FVC and 190 cc's decline in FEV1. Anesthesia Assessment and Plan Anesthesia History Personal History: No History of Anesthesia Complications Family History: No Family History of Anesthesia Complications Exercise Tolerance Exercise Tolerance: Metabolic Equivalents<4 Pertinent Negatives Pertinent Negatives: No Symptoms of GERD and No Major Cardiovascular Symptoms or Complaints Cardiac & Pulmonary Exam Cardiac Exam: Normal S1/S2 Heart Sounds Pulmonary Exam: Clear Bilateral Breath Sounds Implantable Cardiac Device Does patient have a Pacemaker or an ICD?: No Airway Exam Known Difficult Airway: No Mallampati Class: 3 Mouth Opening: Normal (> 3cm) Thyromental Distance: Greater than 3 cm Neck Range of Motion: Full ROM Neck Circumference: Normal Teeth Condition: Loose or Chipped and Removable Dentures/Plates Lower ASA Classification ASA Score: ASA 3 Emergency Case?: No NPO Status NPO Status: NPO Clears >2 hours, Solids >8 hours Anesthesia Plan Resuscitation Status: Full Code Anesthesia Technique: MAC Anesthesia Airway Planned: Natural Airway Monitors Used: Standard Monitors
[2022-07-23] MEDS: Lactated Ringers 500 ML 30 ML IV (09:30)
[2022-07-23 09:34] VITALS: BMI 17.6
[2022-07-23] MEDS: Lidocaine 2% Jelly 6 ML SYR (10:00)
[2022-07-23] MEDS: Lidocaine 1% Pres-Free 5 ML VIAL (10:00)
[2022-07-23] MEDS: Tetracaine 0.5% 4 ML BTL OS (10:00)
[2022-07-23] MEDS: Duovisc Viscoelastic System EACH 1 EACH (10:00)
[2022-07-23] MEDS: Balanced Salt Soln.-PLUS 500 ML BAG (10:00)
[2022-07-23] MEDS: Povidone-Iodine Ophth 30 ML BTL (10:00)
--- NOTE | 2022-07-23 10:18 | W.PM.DSUDISC ---
Date of service: 07/23/22 Time of Service: 10:18 Discharge Plan Disposition Patient Disposition: Home Discharge Details Attending Provider: Yo Epstein Primary Care Provider: Aga Osman Home Meds and New Rx's Prescriptions: No Action Ocuvite Adult 50 Plus 250-5-1 mg capsule 1 cap PO DAILY Trelegy Ellipta 100-62.5-25 mcg blister with device 1 inh IH DAILY Qty: 90 4RF albuterol sulfate 90 mcg/actuation HFA aerosol inhaler 2 puff Inhalation QID PRN (Reason: bronchospasm) Qty: 3 10RF azithromycin 250 mg tablet See Rx Instructions PO .COMPLEX Qty: 6 0RF Rx Instructions: take 500 mg today (day 1), then 250 mg for 4 days (days 2-5) fluticasone propionate [Flovent HFA] 110 mcg/actuation HFA aerosol inhaler 2 puff Inhalation BID PRN (Reason: bronchospasm) Qty: 3 4RF Rx Instructions: TAKE IN ADDITION TO ADVAIR DURING A FLAIR OF COPD prednisone 20 mg tablet 20 mg PO DAILY PRN (Reason: sob) Qty: 20 0RF amlodipine 5 mg tablet 5 mg PO DAILY Qty: 90 6RF magnesium 200 mg tablet 200 mg PO DAILY PRN LIONS TERRENCE PO Label Comments: MUSHROOM CAPS FOR MEMORY AND NERVE SUPPORT PERMILUNG INNOVITE PO Label Comments: RESPIRATION/GAS EXCHANGE GILDA-EX INNOVITA PO PRN hydrocodone-homatropine 5-1.5 mg/5 mL syrup 5 ml PO Q6H MDD 15ml PRN (Reason: cough) Qty: 200 0RF lysine [L-Lysine] 500 MG tablet 500 mg PO TID PRN Rx Instructions: COLD SORES ascorbic acid (vitamin C) [Vitamin C] 500 MG tablet 500 mg PO DAILY ECHINACEA \T\ GOLDENSEAL CAP 1 EACH capsule 1 ea PO DAILY PRN multivitamin [Daily Multiple] 1 EACH tablet 1 ea PO DAILY calcium carbonate-vitamin D3 1 EACH tablet 1 ea PO DAILY cholecalciferol (vitamin D3) [Vitamin D3] 400 UNIT capsule 3 cap PO DAILY (DME) nebulizers [NasoNeb Nasal Nebulizer] Misc 1 ea Miscellaneous PRN Label Comments: never received a mask but works well without the mask. Rx Instructions: DISPENSE W/ ALL NEEDED TUBING, MASK,ETC Discharge Instructions Stand Alone Forms: Post-op Topical Cataract, Suhas Adorno (DSU) Discharge Orders Discharge Orders: Discharge Order (Routine); Ordered 07/23/22 Ordered By: Yo Epstein
[2022-07-23 10:20] VITALS: BP 110/79; PULSE 74; RESP 16; TEMP 36.7; O2SAT 99
--- NOTE | 2022-07-23 10:20 | ROE_ITS ---
Date of service: 07/23/22 Time of Service: 10:20 Operative Note Operative Note DATE OF PROCEDURE: 07/23/22 PRE-OP DIAGNOSIS: Nuclear/cortical cataract, left eye POST-OP DIAGNOSIS: same PROCEDURE: Cataract extraction using phacoemulsification with intraocular lens implant, left eye SURGEON: Yo Epstein ANESTHESIA TYPE: Local By Surgeon and MAC Refer to Anesthesia Record PATHOLOGY: none sent COMPLICATIONS: None Patient was transported to: same day Patient's condition: stable Implants: Micky and Micky / [employer] Tecnis [id number] Indications: Progressive decreased vision due to cataract, left eye Procedure Description: CATARACT SURGERY OPERATIVE REPORT PREOPERATIVE DIAGNOSIS: 1. Nuclear/cortical cataract, left eye POSTOPERATIVE DIAGNOSIS: Same OPERATION: 1. Cataract extraction using phacoemulsification with posterior chamber intraocular lens implant, left eye. IOL: IOL Planting Material Unloader/Model: Micky & Micky / MARIO Tecnis [id number] IOL Power: + 26.5 diopters IOL Serial Number: [id number] Optic Diameter: 6.0 mm Haptic/Overall Diameter: 13.0 mm PHACO INFO: Dudley Datavailurion Vision System with OZil and Active Fluidics Cumulative Dispersed Energy (CDE): 20.0 seconds SURGEON: Yo Epstein MD, RENU ANESTHESIA: Monitored A [facility] (MAC), with local sub-tenon's anesthetic infiltration COMPLICATIONS: None SPECIMENS: None INDICATIONS FOR PROCEDURE: The patient is a 71-year-old lady with history of diminished visual acuity in her left eye secondary to development of significant nuclear/cortical cataract. The option of cataract surgery was offered to the patient and she felt she was s ymptomatic enough that she wished to proceed. PROCEDURE: The correct surgical eye was identified and marked as the left eye and the pupil was dilated in the preoperative area using mydriatics and cycloplegics. The dilated pupil size was 5.5 mm. She was quite anxious, so received IV sedation, 2 mg Versed. The patient was brought to the operating room where cardiopulmonary monitoring was instituted and surgical time-out was performed, confirming the correct operative eye and IOL power. Topical anesthesia was administered and ophthalmic povidone-iodine 5% was instilled into the conjunctival fornices. Lidocaine gel was applied to the cornea and the morris-ocular area was prepped with Betadine 10% solution and draped in the usual sterile fashion for intraocular surgery, including an aperture drape. A Tegaderm transparent film dressing was cut in half and used to cover the lashes and lid margins. Care was taken to sequester the lashes and lid margins under the Tegaderm dressing. A lid speculum was placed between the lids of the operative eye and the Dudley LuxOR Revalia operating microscope was maneuvered into position. Marimar scissors were then used to make a conjunctival buttonhole approximately 6mm posterior to the limbus in the inferonasal quadrant. Blunt dissection was carried out to expose bare sclera, and a blunt-tipped sub-tenon?s anesthesia c annula was introduced and passed posteriorly along the globe where non-preserved plain lidocaine was injected into posterior sub-Tenon?s space. A sideport knife was used to make a paracentesis port superiorly/superiortemporally. Intraocular phenylephrine/lidocaine was injected int the anterior chamber.. The anterior chamber was filled with viscoelastic. A keratome knife was used to construct a 2-plane near-clear corneal tunnel extending 2.0mm into clear cornea temporally. A flap was raised on the anterior capsule and capsulorhexis forceps were used to complete a continuous curvilinear capsulorhexis of 5.0 mm. Balanced salt solution was then used to perform cortical cleaving hydrodissection and nuclear hydrodelineation until the lens could be freely rotated within the capsular bag. The lens nucleus was then disassembled and removed within the capsular bag and iris plane using phacoemulsification. Residual cortical material was removed using the 45-degree angled silicone I/A tip with 0.3mm port. The posterior capsule was carefully polished to remove as much residual lens epithelial cells as safely possible. The capsular bag was then inflated and the anterior chamber deepened with viscoelastic. The lens implant described above was inserted into the capsular bag using the MARIO Bath Injector. A Kuglen hook was used to dial the IOL into position. Residual viscoelastic was then removed first from posterior to the IOL, then from the anterior chamber using the I/A handpiece. The lens implant was noted to center nicely within the capsular bag. The incisions were stromally hydrated, and the anterior chamber was reformed using BSS. Then 0.5cc of moxifloxacin 1.0mg/ml were injected into the capsular bag and anterior chamber. The incisions were checked with a Weck spear and found to be secure. Several drops of ophthalmic povidone-iodine 5% were then applied to the eye followed by two drops of Imprimis combination prednisolone/moxifloxacin/nepafenac solution. Th e drapes were removed and a clear plastic protective eye shield was placed over the eye. The patient was then returned to Same Day Surgery in stable condition.
--- NOTE | 2022-07-23 10:34 | W.ANESPOSTOP ---
Postoperative Evaluation Date, Time and Location Date Performed: 07/23/22 Time Performed: 10:30 Patient Location: Day Surgery Unit Vital Signs Most Recent Imported Vital Signs: Most Recent Vital Signs Temp Pulse Resp BP Pulse Ox 36.7 C 74 16 110/79 99 07/23/22 10:20 07/23/22 10:20 07/23/22 10:20 07/23/22 10:20 07/23/22 10:20 Pain Score Most Recent Pain Score: Most Recent Pain Score Pain Level 0 07/23/22 10:20 Assessment Mental Status: Awake (Alert & Oriented to Patient Baseline) Airway and Respiratory Function: Patent airway with normal (patient baseline) respiratory exam Cardiovascular Function: Hemodynamically Stable Hydration Status: Adequately Hydrated Nausea & Vomiting: No Nausea or Vomiting Pain: Pt. Denies Any Pain Peripheral Nerve Block: Patient did not receive a nerve block
[2022-07-23 10:50] VITALS: BP 102/63; PULSE 81; RESP 16; TEMP 36.2; O2SAT 97
== END 2022-07-23 10:57 | disposition home or self-care (01) ==
LOC: SUR 08:00
PROVIDERS: PCP Family Medicine; Visit Provider Ophthalmology
PROC: (CPT 66984; principal; 2022-07-23 09:45)
DX: H25.012 Cortical age-related cataract, left eye (principal)
CPT/HCPCS: 66984; V2632; J2250

== ENCOUNTER 2022-08-06 08:01 | Day surgery (SDC) | payer MEDICARE, BC, SELFPAY ==
[2022-08-06 08:10] VITALS: BP 142/86; PULSE 78; RESP 18; TEMP 36.5; O2SAT 98
[2022-08-06] MEDS: Tropicam./Phenyleph. (1/2.5%) 5 ML BTL OD ×3 (08:15→08:35)
--- NOTE | 2022-08-06 09:44 | W.ANESPRE ---
General Info Date of Service Date Performed: 08/06/22 Height: 5 ft 1 in Weight: 43.9 kg Body Mass Index (BMI): 18.3 Surgical Procedure: Operation Date: 08/06/22 09:55 Proposed Procedure Side Surgeon p Cataract Extraction with IOL Implant Right Yo Epstein MD Meds Allergies and Home Medications Allergies Allergy/AdvReac Type Severity Reaction Status Date / Time venlafaxine AdvReac Intermediate NAUSEA Unverified 08/06/22 08:18 Home Medication Medication Instructions Recorded lysine 500 mg tablet (L-Lysine) 500 mg PO TID PRN 05/05/13 Echinacea \T\ Goldenseal Cap 1 ea PO DAILY PRN 09/01/13 ascorbic acid (vitamin C) 500 mg 500 mg PO DAILY 09/01/13 tablet (Vitamin C) calcium carbonate 600 mg-vitamin 1 ea PO DAILY 04/19/15 D3 5 mcg (200 unit) tablet cholecalciferol (vitamin D3) 10 3 cap PO DAILY 04/19/15 mcg (400 unit) capsule (Vitamin D3) multivitamin (Daily Multiple 1 ea PO DAILY 04/19/15 tablet) nebulizers (NasoNeb [place]al [place]26/19 [place] [facility] [place] vit C,E,zinc,copper-vfbvp8d 250 1 cap PO DAILY 02/18/20 mg-lutein 5 mg-zeaxanthin 1 mg capsule (Ocuvite Adult 50 Plus) LIONS TERRENCE PO 07/20/21 PERMILUNG INNOVITE PO 07/20/21 GILDA-EX INNOVITA PO PRN 07/20/21 hydrocodone-homatropine 5 mg-1.5 5 ml PO Q6H PRN cough #200 mL 07/20/21 mg/5 mL oral syrup magnesium 200 mg tablet 200 mg PO DAILY PRN 07/20/21 fluticasone fur. 100 mcg-umeclid 1 inh inhalation DAILY #90 ea 01/08/22 62.5 mcg-vilant 25 mcg inhalat.powder (Trelegy Ellipta) albuterol sulfate 90 mcg/actuation 2 puff inhalation QID PRN 07/10/22 aerosol inhaler bronchospasm ##3 amlodipine 5 mg tablet 5 mg PO DAILY #90 tabs 07/10/22 fluticasone propionate 110 2 puff inhalation BID PRN 07/10/22 mcg/actuation HFA aerosol inhaler bronchospasm ##3 (Flovent HFA) prednisone 20 mg tablet 20 mg PO DAILY PRN sob #20 tabs 07/10/22 Current Visit Medications: Current Medications Generic Name Dose Route Start Last Admin Trade Name Freq PRN Reason Stop Dose Admin Acetaminophen 1,000 mg 08/06/22 06:00 Acetaminophen 500 Mg Tab PO Q4H PRN PRN Sodium Chloride 500 mls @ 0 mls/hr 08/06/22 08:34 Saline 500ml Bag IV PRN PRN As Directed IV Miscellaneous Supplies 1 each 08/06/22 08:45 Iv Access IV DIRECTED CARLOS Miscellaneous Medication 0 ml 08/06/22 06:00 Prednisolone 1%, Moxifloxacin 0.5%, Nepafenac 0.1% 5ml Btl OD DIRECTED CARLOS Miscellaneous Medication 0 ml 08/06/22 06:00 08/06/22 08:35 Tropicam./Phenyleph. (1/2.5%) 5 Ml Btl OD 1 drp DIRECTED CARLOS Administration Sodium Chloride 0 ml 08/06/22 08:34 Normal Saline Flush 10 Ml Syr IVP PRN PRN Tetracaine HCl 0 ml 08/06/22 06:00 Tetracaine 0.5% 4 Ml Btl OD DIRECTED CARLOS PFSH Active Problems Active Problems: Problem Status Onset Code Chronic obstructive lung disease 06/13/95 J44.9 Deviated nasal septum J34.2 Osteoporosis M81.0 Thyroid nodule E04.1 Nuclear sclerotic cataract of left eye H25.12 Cortical cataract of left eye H26.9 Medical History Medical History Depressive disorder (06/13/95) Dyshidrotic eczema (06/13/00) Fracture of ankle (12/29/09) Fracture of fibula Herpes zoster (06/13/06) Impaired fasting glucose Pain of right thumb (10/17/15) Restless legs syndrome no treatement presently Sprain of sternum (12/29/09) Tobacco use disorder Surgical History Surgical History (Updated 08/06/22 @ 08:18 by Chelsea Hansen) History of cataract surgery Ligation of fallopian tube (~1984) Tobacco Smoking/Tobacco Use Status: Former Tobacco Use Passive smoking exposure: Yes Alcohol Alcohol Intake: current Alcohol intake frequency: a few times a week Alcohol type: beer Substance Use Substance use: Never Substance use type: does not use Vital Signs and Lab Results Vital Signs Most Recent Vital Signs in EMR: Most Recent Vital Signs Temp Pulse Resp BP Pulse Ox 36.5 C 78 18 142/86 H 98 08/06/22 08:10 08/06/22 08:10 08/06/22 08:10 08/06/22 08:10 08/06/22 08:10 Lab Results Blood Type / Crossmatch: No Data to Display Complete Blood Count: No Data to Display Complete Metabolic Panel: No Data to Display Liver Function Panel: No Data to Display Coagulation Panel: No Data to Display Cardiac Panel: No Data to Display Arterial Blood Gas: No Data to Display Venous Blood Gas: No Data to Display Pancreas Panel: No Data to Display Thyroid Panel: No Data to Display Infectious Disease: No Data to Display Blood Cultures: No Data to Display Toxicology Panel: No Data to Display Imaging and Studies Imaging and Studies Study information below may be from another EMR and interpreted by another provider. Please see original notes in EMR for more complete details. EKG Summary: 07/10/2022: Exam: Resting ECG Reason for Exam: Cataract surgery Patient Location: O HR:61 bpm ECG Measurements Heart Rate 61 AXIS ND 132 P 79 QRSd 77 QRS 59 QT 399 T-49 QTc 402 Conclusion Sinus rhythm...normal P axis, V-rate 50- 99 Nonspecific T abnormalities, inferior leads...T <-0.10mV, II III aVF Echocardiogram Summary: 12/11/2017: Summary: 1. Left ventricle: The cavity size was normal. Wall thickness was normal. Systolic function was normal. The estimated ejection fraction was 55-60%. Wall motion was normal; there were no regional wall motion abnormalities. 2. Aortic valve: Trileaflet; mildly thickened leaflets. There was mild regurgitation. 3. Right ventricle: The cavity size was normal. Wall thickness was normal. Systolic function was normal. Pulmonary Function Summary: 12/04/2017: Spirometry shows severe obstructive airways disease with some, but not significant, bronchodilator response. Lung volumes show no evidence of restriction. There is mild hyperinflation and air trapping. Diffusion capacity severely reduced which is moderately reduced when corrected to alveolar volume. Airways resistance normal. IMPRESSION: Severe obstructive airways disease with some, but not significant, bronchodilator response. This is associated with mild hyperinflation and air trapping and severe diffusion defect. When this study was compared to previous ones from 03/20/07 and 03/22/11, the patient has a total of 170 cc's decline in FVC and 190 cc's decline in FEV1. Anesthesia Assessment and Plan Anesthesia History Personal History: No History of Anesthesia Complications Family History: No Family History of Anesthesia Complications Exercise Tolerance Exercise Tolerance: Metabolic Equivalents<4 Pertinent Negatives Pertinent Negatives: No Symptoms of GERD, No Major Cardiovascular Symptoms or Complaints, No History of CVA/TIA and Other (COPD cough, no fever) Cardiac & Pulmonary Exam Cardiac Exam: Normal S1/S2 Heart Sounds Pulmonary Exam: Clear Bilateral Breath Sounds Implantable Cardiac Device Does patient have a Pacemaker or an ICD?: No Airway Exam Known Difficult Airway: No Mallampati Class: 3 Mouth Opening: Normal (> 3cm) Thyromental Distance: Greater than 3 cm Neck Range of Motion: Full ROM Neck Circumference: Normal Teeth Condition: Loose or Chipped and Removable Dentures/Plates Lower ASA Classification ASA Score: ASA 3 Emergency Case?: No NPO Status NPO Status: NPO Clears >2 hours, Solids >8 hours Anesthesia Plan Resuscitation Status: Full Code Anesthesia Technique: General Anesthesia Airway Planned: Natural Airway Monitors Used: Standard Monitors
[2022-08-06 09:53] VITALS: BMI 18.3
[2022-08-06] MEDS: Balanced Salt Soln.-PLUS 500 ML BAG (10:19)
[2022-08-06] MEDS: Duovisc Viscoelastic System EACH 1 EACH (10:19)
[2022-08-06] MEDS: Tetracaine 0.5% 4 ML BTL OD (10:19)
[2022-08-06] MEDS: Lidocaine 1% Pres-Free 5 ML VIAL (10:20)
[2022-08-06] MEDS: Lidocaine 2% Jelly 6 ML SYR (10:20)
[2022-08-06] MEDS: Povidone-Iodine Ophth 30 ML BTL (10:21)
[2022-08-06 10:40] VITALS: BP 116/72; PULSE 68; RESP 16; TEMP 36.4; O2SAT 98
--- NOTE | 2022-08-06 10:41 | W.PM.DSUDISC ---
Date of service: 08/06/22 Time of Service: 10:42 Discharge Plan Disposition Patient Disposition: Home Discharge Details Attending Provider: Yo Epstein Primary Care Provider: Aga Osman Home Meds and New Rx's Prescriptions: No Action Ocuvite Adult 50 Plus 250-5-1 mg capsule 1 cap PO DAILY Trelegy Ellipta 100-62.5-25 mcg blister with device 1 inh IH DAILY Qty: 90 4RF albuterol sulfate 90 mcg/actuation HFA aerosol inhaler 2 puff Inhalation QID PRN (Reason: bronchospasm) Qty: 3 10RF fluticasone propionate [Flovent HFA] 110 mcg/actuation HFA aerosol inhaler 2 puff Inhalation BID PRN (Reason: bronchospasm) Qty: 3 4RF Rx Instructions: TAKE IN ADDITION TO ADVAIR DURING A FLAIR OF COPD prednisone 20 mg tablet 20 mg PO DAILY PRN (Reason: sob) Qty: 20 0RF amlodipine 5 mg tablet 5 mg PO DAILY Qty: 90 6RF magnesium 200 mg tablet 200 mg PO DAILY PRN LIONS TERRENCE PO Label Comments: MUSHROOM CAPS FOR MEMORY AND NERVE SUPPORT PERMILUNG INNOVITE PO Label Comments: RESPIRATION/GAS EXCHANGE GILDA-EX INNOVITA PO PRN hydrocodone-homatropine 5-1.5 mg/5 mL syrup 5 ml PO Q6H MDD 15ml PRN (Reason: cough) Qty: 200 0RF lysine [L-Lysine] 500 MG tablet 500 mg PO TID PRN Rx Instructions: COLD SORES ascorbic acid (vitamin C) [Vitamin C] 500 MG tablet 500 mg PO DAILY ECHINACEA \T\ GOLDENSEAL CAP 1 EACH capsule 1 ea PO DAILY PRN multivitamin [Daily Multiple] 1 EACH tablet 1 ea PO DAILY calcium carbonate-vitamin D3 1 EACH tablet 1 ea PO DAILY cholecalciferol (vitamin D3) [Vitamin D3] 400 UNIT capsule 3 cap PO DAILY (DME) nebulizers [NasoNeb Nasal Nebulizer] Misc 1 ea Miscellaneous PRN Label Comments: never received a mask but works well without the mask. Rx Instructions: DISPENSE W/ ALL NEEDED TUBING, MASK,ETC Discharge Instructions Stand Alone Forms: Post-op Topical Cataract, Press Ganey (DSU) Discharge Orders Discharge Orders: Discharge Order (Routine); Ordered 01/23/23 Ordered By: oY Epstein DS: Diagnosis Discharge Diagnosis (1) Cortical cataract of right eye: Status: Resolved (2) Nuclear sclerotic cataract of right eye: Status: Resolved
--- NOTE | 2022-08-06 10:43 | W.PM.OP ---
Date of service: 08/06/22 Time of Service: 10:43 Operative Note Operative Note DATE OF PROCEDURE: 08/06/22 PRE-OP DIAGNOSIS: Nuclear/cortical cataract, right eye POST-OP DIAGNOSIS: same PROCEDURE: Cataract extraction using phacoemulsification with intraocular lens implant, right eye SURGEON: Yo Epstein ANESTHESIA TYPE: Local By Surgeon and MAC Refer to Anesthesia Record ESTIMATED BLOOD LOSS: 0 PATHOLOGY: none sent COMPLICATIONS: None Patient was transported to: same day Patient's condition: stable Implants: Micky & Micky/MARIO Tecnis [id number] Indications: Progressive visual loss due to cataract, right eye Procedure Description: CATARACT SURGERY OPERATIVE REPORT PREOPERATIVE DIAGNOSIS: 1. Nuclear/cortical cataract, right eye POSTOPERATIVE DIAGNOSIS: Same OPERATION: 1. Cataract extraction using phacoemulsification with posterior chamber intraocular lens implant, right eye. IOL: IOL Color Making Supervisor/Model: Micky [employer] Micky / MARIO Tecnis [id number] IOL Power: + 25.5 diopters IOL Serial Number: [id number] Optic Diameter: 6.0mm Haptic/Overall Diameter: 13.0mm PHACO INFO: Dudley DigiFiturion Vision System with OZil and Active Fluidics Cumulative Dispersed Energy (CDE): 14.39 seconds SURGEON: Yo Epstein MD, RENU ANESTHESIA: Monitored Anesthesia Care (MAC), with local sub-tenon's anesthetic infiltration COMPLICATIONS: None SPECIMENS: None INDICATIONS FOR PROCEDURE: The patient is a 71-year-old lady with history of diminished visual acuity in her right eye secondary to the development of significant nuclear/cortical cataract. She has already undergone cataract surgery in her left eye and is doing well postoperatively. She now presents for cataract surgery in the right eye. PROCEDURE: The correct surgical eye was identified and marked as the right eye and the pupil was dilated in the preoperative area using mydriatics and cycloplegics. The dilated pupil size was 6.5 mm. For sedation, Versed 2 mg IV were given. The patient was brought to the operating room where cardiopulmonary monitoring was instituted and surgical time-out was performed, confirming the correct operative eye and IOL power. Topical anesthesia was administered and ophthalmic povidone-iodine 5% was instilled into the conjunctival fornices. Lidocaine gel was applied to the cornea and the morris-ocular area was prepped with Betadine 10% solution and draped in the usual sterile fashion for intraocular surgery, including an aperture drape. A Tegaderm transparent film dressing was cut in half and used to cover the lashes and lid margins. Care was taken to sequester the lashes and lid margins under the Tegaderm dressing. A lid speculum was placed between the lids of the operative eye and the Dudley LuxOR Revalia operating microscope was maneuvered into position. Marimar scissors were then used to make a conjunctival buttonhole approximately 6mm posterior to the limbus in the inferonasal quadrant. Blunt dissection was carried out to expose bare sclera, and a blunt-tipped sub-tenon?s anesthesia cannula was introduced and passed posteriorly along the globe where non-preserved plain lidocaine was injected into posterior sub-Tenon?s space. A sideport knife was used to make a paracentesis port inferotemporally. Intraocular phenylephrine/lidocaine was injected into the anterior chamber. The anterior chamber was filled with viscoelastic. A keratome knife was used to construct a 2-plane near-clear corneal tunnel extending 2.0mm into clear cornea superiortemporally. A flap was raised on the anterior capsule and capsulorhexis forceps were used to complete a continuous curvilinear capsulorhexis of 5.5 mm. Balanced salt solution was then used to perform cortical cleaving hydrodissection and nuclear hydrodelineation until the lens could be freely rotated within the capsular bag. The lens nucleus was then disassembled and removed within the capsular bag and iris plane using phacoemulsification. Residual cortical material was removed using the I/A handpiece. The posterior capsule was carefully polished to remove as much residual lens epithelial cells as safely possible. The capsular bag was then inflated and the anterior chamber deepened with viscoelastic. The lens implant described above was inserted into the capsular bag using the MARIO [place] Injector. A Kuglen hook was used to dial the IOL into position. Residual viscoelastic was then removed first from posterior to the IOL, then from the anterior chamber using the I/A handpiece. The lens implant was noted to center nicely within the capsular bag. The incisions were stromally hydrated, and the anterior chamber was reformed using BSS. Then 0.5cc of moxifloxacin 1.0mg/ml were injected into the capsular bag and anterior chamber. The incisions were checked with a Weck spear and found to be secure. Several drops of ophthalmic povidone-iodine 5% were then applied to the eye followed by two drops of Imprimis combination prednisolone/moxifloxacin/nepafenac solution. The drapes were removed and a clear plastic protective eye shield was placed over the eye. The patient was then returned to Same Day Surgery in stable condition.
[2022-08-06 11:00] VITALS: BP 128/75; PULSE 77; RESP 16; TEMP 36.4; O2SAT 95
--- NOTE | 2022-08-06 11:06 | W.ANESPOSTOP ---
Postoperative Evaluation Date, Time and Location Date Performed: 08/06/22 Time Performed: 10:40 Patient Location: Day Surgery Unit Vital Signs Most Recent Imported Vital Signs: Most Recent Vital Signs Temp Pulse Resp BP Pulse Ox 36.4 C L 68 16 116/72 98 08/06/22 10:40 08/06/22 10:40 08/06/22 10:40 08/06/22 10:40 08/06/22 10:40 Pain Score Most Recent Pain Score: Most Recent Pain Score Pain Level 0 08/06/22 10:40 Assessment Mental Status: Awake (Alert & Oriented to Patient Baseline) Airway and Respiratory Function: Patent airway with normal (patient baseline) respiratory exam Cardiovascular Function: Hemodynamically Stable Hydration Status: Adequately Hydrated Nausea & Vomiting: No Nausea or Vomiting Pain: Pt. Denies Any Pain Peripheral Nerve Block: Other (Local by Dr. Epstein)
== END 2022-08-06 11:13 | disposition home or self-care (01) ==
LOC: SUR 08:02
PROVIDERS: PCP Family Medicine; Visit Provider Ophthalmology
PROC: (CPT 66984; principal; 2022-08-06 09:45)
DX: H25.11 Age-related nuclear cataract, right eye (principal)
CPT/HCPCS: 66984; V2632; J2250

== ENCOUNTER 2024-02-12 21:20 | Outpatient (REF) | payer MEDICARE, BC, SELFPAY | END 2024-02-12 21:21 | disposition home or self-care (01) | LOC: LBN 21:20 | PROVIDERS: PCP Family Medicine; Visit Provider Physician Assistant | DX: N39.0 Urinary tract infection, site not specified (principal); B96.89 Other specified bacterial agents as the cause of diseases classified elsewhere | CPT/HCPCS: 87077; 87086; 87186 ==

== ENCOUNTER 2024-04-23 01:07 | Outpatient (CLI) | payer MEDICARE, BC, SELFPAY ==
--- NOTE | 2024-04-23 12:29 | DI.DEXA_ITS ---
Exam(s) XR DEXA BONE DENSITY W/WO APOLONIA EXAM: XR DEXA BONE DENSITY W/WO APOLONIA CLINICAL HISTORY: post menopausal,menopausal disorder, N95.9 TECHNIQUE: HoloNeedly Horizon C densitometer analysis of left hip, lumbar spine and left forearm. Lat eral survey image of the thoracic and lumbar spine. COMPARISON: 2003 and 2005 FINDINGS: Lateral view of the thoracic and lumbar spine shows no evidence of compression fractures. Bone mineral density measurements of the lumbar spine correspond to a total T-score of -3.4, in the osteoporotic range. This represents an 8.9 percent decrease from 2005 and a 5.9 percent decrease fro m 2003. Bone mineral density measurements of the left hip correspond to a total T-score of -4.4. This repre sents a 35.1 percent decrease from 2005 and a 32.5 percent decrease compared with 2003. The femoral neck T-score is -4.5, in the osteoporotic range. Theleft forearm bone mineral density measurements correspond to a T-score of the distal 3rd of -3.5, in the osteoporotic range. The forearm was not analyzed previously. IMPRESSION: Osteoporosis of the spine, hip and forearm.
--- NOTE | 2024-04-23 12:29 | DI.MAMMO_ITS ---
Exam(s) MAMMO SCREENING EXAM: MAMMO SCREENING CLINICAL HISTORY: screening,z12.39. TECHNIQUE: Bilateral full field digital CC and MLO mammographic images were obtained with 3D tomosyn thesis and utilizing computer aided detection (CAD). COMPARISON: Prior mammograms were reviewed. Most recent mammogram was 2019. FINDINGS: Fibroglandular tissue is again noted be extremely Dense, this decreasing the sensitivity of the mammo gram for finding hidden underlying lesions. There are no obvious new spiculated masses nor malignant appearing microcalcification groups. Benign-appearing microcalcifications noted. There is no significant architectural distortion nor skin thickening-retraction. IMPRESSION: Very dense bilateral fibroglandular tissue. No obvious radiographic evidence malignancy. BI-RADS Category 2 - Benign Findings Breast Density - Category D - Extremely dense Breast density Category C or D implies that the patient has dense breast tissue. Dense breast tissue can make it harder to find cancer on a mammogram. Dense breast tissue is also associated with an incr eased risk of breast cancer. This information about the result of the mammogram report was provided to the patient to raise their awareness. Use this report when you speak with the patient about their risks for breast cancer, which includes their family history. At that time, you may recommend additional screening tests (Ultrasoun d or MRI) as these tests may add significant information. A negative radiographic report should not delay biopsy if a dominant or clinically suspicious mass is present. Up to ten percent of cancers are not identified on mammography. A negative report may reinforce clinical impression. Adenosis and dense breasts may obscure an underlying neoplasm. False positive reports average 6 to 10%. Patient will receive a letter notifying them of these results.
== END 2024-04-23 01:27 ==
LOC: DI 01:07
PROVIDERS: PCP Family Medicine; Visit Provider Family Medicine
DX: Z12.31 Encounter for screening mammogram for malignant neoplasm of breast (principal); Z13.820 Encounter for screening for osteoporosis; R92.323 Mammographic fibroglandular density, bilateral breasts; N95.9 Unspecified menopausal and perimenopausal disorder; M81.0 Age-related osteoporosis without current pathological fracture
CPT/HCPCS: 77063; 77067; 77080

== ENCOUNTER 2024-08-25 09:10 | Inpatient (IN) | payer MEDICARE, BC, SELFPAY ==
[2024-08-25] VITALS (33 sets, daily range): BP systolic 110–165; BP diastolic 54–103; PULSE 87–137; RESP 2–41; TEMP 36.6–37.5; O2SAT 90–99
--- NOTE | 2024-08-25 09:00 | RT.EKG_ITS ---
APPROVED REPORT Exam: Resting ECG Reason for Exam: Difficulty Breathing Patient Location: E HR:135 bpm ECG Measurements Heart Rate 135 AXIS OR 135 P 74 QRSd 81 QRS 78 QT 278 T 253 QTc 417 Conclusion Sinus tachycardia...rate> 99 Repol abnrm suggests ischemia, diffuse leads...ST-T neg, ant/lat/inf
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
[2024-08-25] MEDS: Levalbuterol 1.25 MG/3 ML UPD VIAL UPD ×2 (09:36→11:19)
[2024-08-25] MEDS: Normal Saline 1,000 ML 1000 ML IV (09:41)
--- NOTE | 2024-08-25 09:45 | DI.RAD_ITS ---
Exam(s) XR PORTABLE CHEST AP EXAM: XR PORTABLE CHEST AP CLINICAL HISTORY: dyspnea. TECHNIQUE: 2D digital imaging was performed. COMPARISON: CR XR CHEST 2V PA LATERAL from 11/10/[address] CHEST WO from 11/12/2018 FINDINGS: Single AP portable view. Heart size is upper normal. The mediastinum is not widened. There is infiltrate in right lung base. Probably also milder infiltrate in left lung base. No pleur al effusions. No edema. IMPRESSION: Right lung base infiltrate. Possible milder infiltrate evident in the left lung base. No obvious pl eural effusions DATA REPOSITORY: RADIATION DOSE DELIVERED:
[2024-08-25] MEDS: Albuterol/Ipratropium 3 ML UPD VIAL UPD ×3 (09:50→22:21)
[2024-08-25 09:56] LABS: Abs Immature Grans 0.05 10^3/uL (0.0-0.06); Absolute Basophil Count 0.05 10^3/uL (0.0-0.2); Absolute Monocyte Count 0.88 10^3/uL (0.1-0.8); Absolute Neutrophil Count 13.55 10^3/uL (1.2-6.7); Basophils % 0.3 %; Eosinophils % 0.1 %; HCT 37.8 % (36.0-46.0); HGB 12.5 g/dL (11.2-15.7); Immature Grans % 0.3 %; Lymphocytes % 4.2 %; MCH 29.6 pg (27.0-33.0); MCHC 33.1 % (32.0-36.0); MCV 90 fL (80-95); MPV 9.3 fL (8.0-11.0); Monocytes % 5.8 %; Neutrophils % 89.3 %; Platelet Count 274 10^3/uL (130-400); RBC 4.22 10^6/uL (3.93-5.22); RDW-SD 42.6 fL; WBC 15.17 10^3/uL (4.4-10.8)
[2024-08-25 09:57] LABS: Absolute Eosinophil Count 0.02 10^3/uL (0.0-0.7); Absolute Lymphocyte Count 0.64 10^3/uL (1.2-3.4)
[2024-08-25 10:09] LABS: PTT Activated 22.4 sec (20.6-30.2); Prothrombin Time 10.3 sec (9.1-11.1)
[2024-08-25 10:17] LABS: COVID-19 PCR Negative (Negative); Influenza A PCR Negative (Negative); Influenza B PCR Negative (Negative); RSV PCR Negative (Negative)
[2024-08-25 10:18] LABS: Lab Add On Test DONE
[2024-08-25 10:19] LABS: Source Nasopharynx
[2024-08-25 10:32] LABS: ALT 30 U/L (14-59); AST < 5 U/L (15-37); Albumin 3.8 g/dL (3.4-5.0); Alkaline Phosphatase 78 U/L (46-116); Anion Gap 7.3 mmol/L (3-11); BUN 15 mg/dL (7-18); Bilirubin, Total 1.34 mg/dL (0.2-1.0); CO2 27.7 mmol/L (21.0-32.0); CREATININE 0.9 mg/dL (0.55-1.02); Calcium 9.2 mg/dL (8.5-10.1); Chloride 105 mmol/L (98-107); Estimated GFR 67.08 (mL/min/1.73m2); Glucose 202 mg/dL (74-106); Magnesium 1.6 mg/dL (1.8-2.4); NT-proBNP 497 pg/mL (<300); Potassium 3.7 mmol/L (3.5-5.1); Sodium 140 mmol/L (136-145); TSH (W/Ref FT4) 0.38 uIU/mL (0.36-3.74); Total Protein 7.4 g/dL (6.4-8.2); Troponin I 12 ng/L (<or=51)
[2024-08-25] MEDS: cefTRIAXone 2 GM/50 ML BAG IVPB (10:50)
[2024-08-25 11:05] LABS: Procalcitonin < 0.10 ng/mL
[2024-08-25] MEDS: AZITHROMYCIN 500 MG in Normal Saline 250 ML 250 MG IVPB (11:24)
[2024-08-25] MEDS: MAGNESIUM SULFATE 1 GM/100 ML BAG IV_INF (11:25)
[2024-08-25 11:27] LABS: Troponin I 29 ng/L (<or=51)
--- NOTE | 2024-08-25 12:22 | NUR.NOTE ---
Nursing Note: Report given to [facility] - on tele [id number]
--- NOTE | 2024-08-25 12:28 | W.PC.ACHO ---
Registration Status: Primary Language: Preferred Language: ED Information & Data Chief Complaint RespSymp 08/25/24 09:37 Triage Note Patient presents to the 08/25/24 09:23 emergency department via EMS with shortness of breath. Patient was in the 80s prior to arrival. Very little air movement. Went to urgent care yesterday, given an antibiotic was diagnosed with COPD exacerbation. Medical / Surgical History (Last Reviewed 12/18/22 @ 13:13 by Geovanni Mtz NP) Laceration of right lower leg without foreign body Depressive disorder (06/13/95) Fracture of ankle (12/29/09) Fracture of fibula Herpes zoster (06/13/06) Impaired fasting glucose Sprain of sternum (12/29/09) Tobacco use disorder Dyshidrotic eczema (06/13/00) Pain of right thumb (10/17/15) Restless legs syndrome (Last Reviewed 12/18/22 @ 13:13 by Geovanni Mtz NP) History of cataract surgery Ligation of fallopian tube (~1984) Most Recent Vital Signs Temperature 37.4 C 08/25/24 12:17 Temperature Source Temporal Artery Scan 08/25/24 12:17 Pulse 119 H 08/25/24 12:17 Pulse 122 H 08/25/24 12:00 Respiratory Rate 19 08/25/24 12:17 Respiratory Effort Short of Breath, Labored 08/25/24 09:28 Blood Pressure 145/87 H 08/25/24 12:17 Blood Pressure Mean 78 08/25/24 10:30 Pulse Oximetry 95 08/25/24 12:17 Oxygen Delivery Method Nasal Cannula 08/25/24 12:17 Oxygen Flow Rate 3 08/25/24 12:17 Allergies venlafaxine Adverse Reaction (Intermediate, Unverified 08/24/24 17:57) NAUSEA Precautions Isolation Standard precaution 08/25/24 09:27 IV IV Catheter Type [Left Peripheral IV Antecubital] Diet Orders Category Date Time Status Heart Healthy Eating [DIET] Nutrition 08/25/24 Lunch Active Diagnostics 08/25/24 08/25/24 08/25/24 Range/Units 12:20 10:45 10:11 WBC (4.4-10.8) 10^3/uL RBC (3.93-5.22) 10^6/uL Hgb (11.2-15.7) g/dL Hct (36.0-46.0) % MCV (80-95) fL MCH (27.0-33.0) pg MCHC (32.0-36.0) % RDW (11.7-14.6) % Plt Count (130-400) 10^3/uL MPV (8.0-11.0) fL Immature Gran % % Neutrophils % % Lymphocytes % % Monocytes % % Eosinophils % % Basophils % % Nucleated RBC % (0.0-0.3) % Absolute Neutrophils (1.2-6.7) 10^3/uL Absolute Lymphocytes (1.2-3.4) 10^3/uL Absolute Monocytes (0.1-0.8) 10^3/uL Absolute Eosinophils (0.0-0.7) 10^3/uL Absolute Basophils (0.0-0.2) 10^3/uL PT (9.1-11.1) sec INR (0.9-1.1) APTT (20.6-30.2) sec Sodium (136-145) mmol/L Potassium (3.5-5.1) mmol/L Chloride (98-107) mmol/L Carbon Dioxide (21.0-32.0) mmol/L Anion Gap (3-11) mmol/L BUN (7-18) mg/dL Creatinine (0.55-1.02) mg/dL Est GFR (CKD-EPI 2020) (mL/min/1.73m2) Glucose (74-106) mg/dL Calcium (8.5-10.1) mg/dL Magnesium (1.8-2.4) mg/dL Total Bilirubin (0.2-1.0) mg/dL AST (15-37) U/L ALT (14-59) U/L Alkaline Phosphatase (46-116) U/L Troponin I Pending 29 (<or=51) ng/L NT-Pro-B Natriuret Pep (<300) pg/mL Total Protein (6.4-8.2) g/dL Albumin (3.4-5.0) g/dL Procalcitonin ng/mL TSH (0.36-3.74) uIU/mL COVID-19 Source SARS-CoV-2 (PCR) (Negative) Influenza Type A (PCR) (Negative) Influenza Type B (PCR) (Negative) RSV (PCR) (Negative) Add-On Test Request DONE 08/25/24 08/25/24 Range/Units 09:50 09:31 WBC 15.17 H (4.4-10.8) 10^3/uL RBC 4.22 (3.93-5.22) 10^6/uL Hgb 12.5 (11.2-15.7) g/dL Hct 37.8 (36.0-46.0) % MCV 90 (80-95) fL MCH 29.6 (27.0-33.0) pg MCHC 33.1 (32.0-36.0) % RDW 13.0 (11.7-14.6) % Plt Count 274 (130-400) 10^3/uL MPV 9.3 (8.0-11.0) fL Immature Gran % 0.3 % Neutrophils % 89.3 % Lymphocytes % 4.2 % Monocytes % 5.8 % Eosinophils % 0.1 % Basophils % 0.3 % Nucleated RBC % 0.0 (0.0-0.3) % Absolute Neutrophils 13.55 H (1.2-6.7) 10^3/uL Absolute Lymphocytes 0.64 L (1.2-3.4) 10^3/uL Absolute Monocytes 0.88 H (0.1-0.8) 10^3/uL Absolute Eosinophils 0.02 (0.0-0.7) 10^3/uL Absolute Basophils 0.05 (0.0-0.2) 10^3/uL PT 10.3 (9.1-11.1) sec INR 1.0 (0.9-1.1) APTT 22.4 (20.6-30.2) sec Sodium 140 (136-145) mmol/L Potassium 3.7 (3.5-5.1) mmol/L Chloride 105 (98-107) mmol/L Carbon Dioxide 27.7 (21.0-32.0) mmol/L Anion Gap 7.3 (3-11) mmol/L BUN 15 (7-18) mg/dL Creatinine 0.9 (0.55-1.02) mg/dL Est GFR (CKD-EPI 2020) 67.08 (mL/min/1.73m2) Glucose 202 H (74-106) mg/dL Calcium 9.2 (8.5-10.1) mg/dL Magnesium 1.6 L (1.8-2.4) mg/dL Total Bilirubin 1.34 H (0.2-1.0) mg/dL AST < 5 L (15-37) U/L ALT 30 (14-59) U/L Alkaline Phosphatase 78 (46-116) U/L Troponin I 12 (<or=51) ng/L NT-Pro-B Natriuret Pep 497 H (<300) pg/mL Total Protein 7.4 (6.4-8.2) g/dL Albumin 3.8 (3.4-5.0) g/dL Procalcitonin < 0.10 ng/mL TSH 0.38 (0.36-3.74) uIU/mL COVID-19 Source Nasopharynx SARS-CoV-2 (PCR) Negative (Negative) Influenza Type A (PCR) Negative (Negative) Influenza Type B (PCR) Negative (Negative) RSV (PCR) Negative (Negative) Add-On Test Request 08/25/24 10:45 Blood Culture - Pending Blood 08/25/24 10:55 Blood Culture - Pending Blood Intake and Output - 24 Hour Total 08/25/24 09:07 thru 08/25/24 11:25 Intake Total 1050 Balance 1050 Weight 44.1 kg Intake: IV 1050 Falls Risk Assessment History of Falls No History 08/25/24 09:28 Contributing Factors No Factors 08/25/24 09:28 Ambulatory Aids Independent 08/25/24 09:28 Tubes/Lines None 08/25/24 09:28 Gait Evaluation No gait disturbance 08/25/24 09:28 Cognition No cognitive impairment 08/25/24 09:28 Fall Total Score 0 08/25/24 09:28 Level of Risk Standard/Low Risk 08/25/24 09:28 v v v v v v v v v Sending and/or Receiving Nurses: Please use comment section below to note any information pertinent to the patient hand-off not included above. Information / Comments: AxOx4, Sinus tach, 3LPM (baseline RA), Cont B/B, Skin C/D/I. Admitted for increased SOB and COPD Exacerbation. 18g LAC Report received from: ED, RN 12:05
[2024-08-25 14:15] LABS: Troponin I 84 ng/L (<or=51)
[2024-08-25] MEDS: Enoxaparin 40 MG/0.4 ML SYR SC (16:30)
[2024-08-25] MEDS: ACETAMINOPHEN 1,000 MG/100 ML BAG 400 MG IVPB (16:31)
[2024-08-25 17:37] LABS: BE (Venous) -2 mmol/L (-2-3); HCO3 (Venous) 23 mmol/L (23-28); O2 Sat (Venous) 96 %; TCO2 (Venous) 21 mmol/L (24-29); pCO2 (Venous) 35 mmHg (41-51); pH (Venous) 7.42 (7.31-7.41); pO2 (Venous) 72 mmHg
[2024-08-25 17:42] LABS: Lactate 2.9 mmol/L (<or=2.0)
[2024-08-25] MEDS: methylPREDNISolone SUCC 125 MG VIAL 60 MG IVP (18:00)
[2024-08-25 18:07] LABS: Troponin I 91 ng/L (<or=51)
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
[2024-08-25] MEDS: Normal Saline 1,000 ML 75 ML IV (20:52)
[2024-08-25] MEDS: LORazepam 0.5 MG TAB PO (20:53)
[2024-08-25] MEDS: guaiFENesin 600 MG TABCR PO (20:53)
[2024-08-25] MEDS: Normal Saline Flush 10 ML SYR IVP ×2 (20:53→20:54)
[2024-08-25] MEDS: Normal Saline 250 ML IV (20:53)
[2024-08-25 21:59] LABS: Bilirubin Negative (Negative); Blood Negative (Negative); Clarity Clear (Clear); Glucose 500 mg/dL (Negative); Ketones Trace mg/dL (Negative); Leukocyte Esterase Negative (Negative); Nitrite Negative (Negative); Specific Gravity 1.015 (1.005-1.025); Urobilinogen 0.2 mg/dL (Up to 0.2)
[2024-08-25 22:54] LABS: Troponin I 84 ng/L (<or=51)
[2024-08-25 23:40] LABS: Lactate 1.4 mmol/L (<or=2.0)
[2024-08-26] VITALS (16 sets, daily range): BP systolic 130–143; BP diastolic 73–87; PULSE 92–115; RESP 5–20; TEMP 36.4–36.9; O2SAT 92–99
[2024-08-26 01:02] LABS: MRSA PCR Negative (Negative)
[2024-08-26] MEDS: methylPREDNISolone SUCC 125 MG VIAL 60 MG IVP ×4 (01:52→23:34)
[2024-08-26] MEDS: Normal Saline Flush 10 ML SYR IVP ×5 (01:53→23:35)
[2024-08-26] MEDS: Albuterol/Ipratropium 3 ML UPD VIAL UPD ×4 (04:16→21:48)
[2024-08-26 06:48] LABS: Absolute Neutrophil Count 17.51 10^3/uL (1.2-6.7); Basophils % 0.3 %; HCT 33.6 % (36.0-46.0); HGB 11.2 g/dL (11.2-15.7); Immature Grans % 0.5 %; Lymphocytes % 3.2 %; MCH 29.6 pg (27.0-33.0); MCHC 33.3 % (32.0-36.0); MCV 89 fL (80-95); MPV 10.1 fL (8.0-11.0); Monocytes % 3.3 %; Neutrophils % 92.7 %; Platelet Count 255 10^3/uL (130-400); RBC 3.78 10^6/uL (3.93-5.22); RDW 13.3 % (11.7-14.6); RDW-SD 43.3 fL; WBC 18.89 10^3/uL (4.4-10.8)
[2024-08-26 06:52] LABS: Absolute Basophil Count 0.06 10^3/uL (0.0-0.2); Absolute Monocyte Count 0.62 10^3/uL (0.1-0.8)
[2024-08-26 07:23] LABS: Anion Gap 6.4 mmol/L (3-11); BUN 16 mg/dL (7-18); CO2 26.6 mmol/L (21.0-32.0); CREATININE 0.7 mg/dL (0.55-1.02); Calcium 8.9 mg/dL (8.5-10.1); Chloride 112 mmol/L (98-107); Glucose 159 mg/dL (74-106); Magnesium 1.9 mg/dL (1.8-2.4); Potassium 3.4 mmol/L (3.5-5.1); Sodium 145 mmol/L (136-145)
[2024-08-26] MEDS: Budesonide/Formoterol 80/4.5 6.9 GM 60 PUFF INH IH ×2 (08:11→21:54)
[2024-08-26] MEDS: Tiotropium Bromide-Respimat 10 PUFF INH 2 PUFF IH (08:11)
[2024-08-26] MEDS: cefTRIAXone 2 GM/50 ML BAG IVPB (09:25)
[2024-08-26] MEDS: guaiFENesin 600 MG TABCR PO ×2 (09:26→20:02)
[2024-08-26] MEDS: Potassium Chloride Liquid 20 MEQ PKT PO (11:13)
[2024-08-26] MEDS: AZITHROMYCIN 500 MG in Normal Saline 250 ML 250 MG IVPB (12:55)
[2024-08-26] MEDS: LORazepam 0.5 MG TAB PO ×2 (14:17→23:34)
--- NOTE | 2024-08-26 14:48 | CHAPLAIN ---
Liza was sitting up in bed, working hard to breathe. She said she is worse this afternoon than this morning, and that her anxiety is rising because of her difficulty breathing. Her daughter, Betty, was with her. Betty is former Reiki volunteer at [facility]. I explained my role and offered support. I will continue to visit.
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
[2024-08-26] MEDS: Enoxaparin 40 MG/0.4 ML SYR SC (17:01)
--- NOTE | 2024-08-26 20:16 | W.PM.PROGNOT ---
Date of Service Date of service: 08/26/24 Time of Service: 20:16 Assessment and Plan Assessment and plan (1) Community acquired pneumonia: Status: Acute Assessment and plan: Difficulty breathing - continues to have pursed lip - does not use oxygen at home Continue nebs/methylprednisolone IV Urine legionella/strep pending Sputum cx pending MRSA pending BC pending Continue levalbuterol WBC 18.89 upp from yesterday, is receiving steroids - trend Procalcitonin negative TSH 0.38 Troponin 12 29 84 91 - check 5th troponin (pending); no chest pain proBNP 497 Mag 1.9 today Glucose 202 (given steroids) Continue azithromycin and ceftriaxone Benzonatate guaifenesin prn Continue spiriva and mometasone and budesonide/formoterol fumarate (2) COPD exacerbation: Status: Acute Assessment and plan: Diff breathing See above (3) Hypomagnesemia: Status: Acute Assessment and plan: mag 1.6 repleted in ED Trend (4) Hyperthyroidism: Status: Chronic Assessment and plan: TSH 0.38 (5) Anxiety: Status: Chronic Assessment and plan: Becomes more anxious when diff breathing, then has more diff breathing from anxiety Offer lorazepam Subjective Subjective Patient reports: no new complaints, tolerating a regular diet, voiding w/o difficulty, bowel movement, shortness of breath (improved slightly) and afebrile; denies diarrhea, nausea or vomiting Interval history since last seen: Continues to complain of feeling sob after nebulizer, daughter at bedside, appropriately concerned. Exam Const Orientation: alert HENMT Head: normal to inspection Ears: external ears normal General nose exam: external nose normal Mouth: moist mucous membranes Eyes General: appearance normal, both eyes and all related structures Neck Neck: normal visual inspection Resp Auscultation: diminished lung sounds and wheezes Cardio Jugular venous pressure: no JVD Rate: regular rate Heart Sounds: no murmurs Skin General skin exam: no rashes or lesions noted Neuro General: patient alert and patient oriented x3 Extrem General: normal to inspection Psych Mental Status: mental status grossly normal Objective Last Vital Signs Temp 36.8 C 08/26/24 15:45 Pulse 100 H 08/26/24 16:14 Resp 20 08/26/24 16:14 BP 131/87 08/26/24 15:45 Pulse Ox 96 08/26/24 16:14 Laboratory Results - last 24 hr 08/25/24 08/25/24 08/25/24 13:55 22:26 23:30 WBC RBC Hgb Hct MCV MCH MCHC RDW Plt Count MPV Immature Gran % Neutrophils % Lymphocytes % Monocytes % Eosinophils % Basophils % Nucleated RBC % Absolute Neutrophils Absolute Lymphocytes Absolute Monocytes Absolute Eosinophils Absolute Basophils VBG Lactate Sodium Potassium Chloride Carbon Dioxide Anion Gap BUN Creatinine Est GFR (CKD-EPI 2020) Glucose Calcium Magnesium Troponin I 84 H* Urine Color Yellow Urine Clarity Clear Urine pH 6.0 Ur Specific [place] 1.015 Urine Protein Negative Urine Ketones Trace H Urine Blood Negative Urine Nitrite Negative Urine Bilirubin Negative Urine Urobilinogen 0.2 Ur Leukocyte Esterase Negative Urine Glucose 500 H MRSA (TEM-PCR) Negative 08/25/24 08/26/24 23:35 05:45 WBC 18.89 H RBC 3.78 L Hgb 11.2 Hct 33.6 L MCV 89 MCH 29.6 MCHC 33.3 RDW 13.3 Plt Count 255 MPV 10.1 Immature Gran % 0.5 Neutrophils % 92.7 Lymphocytes % 3.2 Monocytes % 3.3 Eosinophils % 0.0 Basophils % 0.3 Nucleated RBC % 0.0 Absolute Neutrophils 17.51 H Absolute Lymphocytes 0.60 L Absolute Monocytes 0.62 Absolute Eosinophils 0.00 Absolute Basophils 0.06 VBG Lactate 1.4 Sodium 145 Potassium 3.4 L Chloride 112 H Carbon Dioxide 26.6 Anion Gap 6.4 BUN 16 Creatinine 0.7 Est GFR (CKD-EPI 2020) 90.70 Glucose 159 H Calcium 8.9 Magnesium 1.9 Troponin I Urine Color Urine Clarity Urine pH Ur Specific [place] Urine Protein Urine Ketones Urine Blood Urine Nitrite Urine Bilirubin Urine Urobilinogen Ur Leukocyte Esterase Urine Glucose MRSA (TEM-PCR) PAWSS Have you Been Recently Intoxicated or Drunk Within the Last 30 days?: No Have you Ever Experienced Previous Episodes of Alcohol Withdrawal?: No Have you ever Experienced Withdrawal Seizures?: No Have you ever Experienced Delirium Tremens(DT)s?: No Have you ever undergone Alcohol Rehabilitation Treatment (i.e, inpt ot outpatient treatment programs)?: No Have you ever Experienced Blackouts?: No Have you ever Combined Alcohol with other Downers within the last 90 days?: No Have you ever Combined Alcohol with any other Substance of Abuse during the last 90 days?: No Positive Blood Alcohol level on Presentation? [PCS.BAL]: No Evidence of Increased Autonomic Activity (i.e. HR>120, tremor, sweating, agitation, nausea)?: No Result: 0 Time Spent with Patient Time Spent with Patient: 25-34 minutes Time was spent: preparing to see the patient(eg.review tests), ordering medications,tests, procedures, referring, communicating with other health health care facilities inspector, indepentently interpreting results, counseling the patient and care coordination
[2024-08-26 20:49] LABS: Legionella Ag Detection Urine Negative (Negative)
[2024-08-27] VITALS (9 sets, daily range): BP systolic 149–168; BP diastolic 90–98; PULSE 98–123; RESP 5–24; TEMP 36.8–37.3; O2SAT 91–99
[2024-08-27] MEDS: Albuterol/Ipratropium 3 ML UPD VIAL UPD ×3 (04:05→16:55)
[2024-08-27 06:46] LABS: Abs Immature Grans 0.13 10^3/uL (0.0-0.06); Absolute Basophil Count 0.04 10^3/uL (0.0-0.2); Absolute Lymphocyte Count 0.41 10^3/uL (1.2-3.4); Basophils % 0.2 %; HCT 37.3 % (36.0-46.0); HGB 12.3 g/dL (11.2-15.7); Immature Grans % 0.7 %; Lymphocytes % 2.2 %; MCH 29.8 pg (27.0-33.0); MCV 90 fL (80-95); MPV 9.7 fL (8.0-11.0); Neutrophils % 92.9 %; Platelet Count 293 10^3/uL (130-400); RBC 4.13 10^6/uL (3.93-5.22); RDW 13.5 % (11.7-14.6); RDW-SD 44.5 fL; WBC 18.68 10^3/uL (4.4-10.8)
[2024-08-27 06:47] LABS: Absolute Monocyte Count 0.75 10^3/uL (0.1-0.8); Absolute Neutrophil Count 17.35 10^3/uL (1.2-6.7)
[2024-08-27 06:53] LABS: Anion Gap 10.9 mmol/L (3-11); BUN 21 mg/dL (7-18); CO2 24.1 mmol/L (21.0-32.0); Calcium 9.6 mg/dL (8.5-10.1); Chloride 110 mmol/L (98-107); Estimated GFR 59.12 (mL/min/1.73m2); Glucose 168 mg/dL (74-106); Magnesium 2.1 mg/dL (1.8-2.4); Potassium 4.1 mmol/L (3.5-5.1); Sodium 145 mmol/L (136-145)
[2024-08-27] MEDS: Budesonide/Formoterol 80/4.5 6.9 GM 60 PUFF INH IH (09:20)
[2024-08-27] MEDS: Tiotropium Bromide-Respimat 10 PUFF INH 2 PUFF IH (09:20)
[2024-08-27 09:34] LABS: MRSA PCR Negative (Negative)
[2024-08-27] MEDS: guaiFENesin 600 MG TABCR PO (10:11)
[2024-08-27] MEDS: cefTRIAXone 2 GM/50 ML BAG IVPB (10:14)
--- NOTE | 2024-08-27 10:32 | CMPROGNOTE_ITS ---
Date of service: 08/27/24 Time of Service: 10:32 Care Management Progress Note Progress Note Text Progress Note Text: Liza was awake and lying in bed visiting with her daughter when CM met with her. Liza continues to have SOB with exertion and the two are planning to set up chairs around the home so Liza can rest frequently. Liza may be interested in ordering a life alert necklace, CM provided her with brochure. Liza and her daughter have used [facility] services in the past and will reach out to them directly if she ever feels she could use their services. Discharge Potential Discharge Needs: PCP F/U Appt Anticipated Barriers to Discharge: Medical Status Patient/Family Education Needs: Review discharge instructions, discuss Ask Me Three Transportation: Private vehicle Plan: Anticipate that Liza will be discharged home with new services, if needed. She will f/u with her PCP and continue per her plan of care. Liza will transport via private vehicle with Betty. CM will continue to follow. Social Determinants of Health Screening Social Determinants of Health last assessed: 08/27/24 Will the Patient Participate in the Screening?: Yes Do you worry about having a steady place to live?: no Problems where you live: pests such as bugs, ants or mice, mold, smoke detectors missing or not working and Carbon monoxide detectors missing or not working In the past 12 months, have you had to go without electric, gas, oil or water in your home?: no Have you or anyone in your house had to go without enough food to eat?: no Has lack of transportation kept you from medical appointments or from doing things needed for daily living?: no Has anyone in your life made you feel unsafe or unsupported?: no How hard is it for you to pay for the very basics like food, housing, medical care, and heating? Would you say it is:: Not hard at all Do you want help finding or keeping work or a job?: I do not need or want help If for any reason you need help with day-to-day activities such as bathing, preparing meals, shopping, managing finances, etc., do you get the help you need?: I don?t need any help How often do you feel lonely or isolated from those around you?: Never Do you speak a language other than Burkinan at home?: Yes Does the patient want assistance with any of the above?: No Health Related Social Needs Health related social needs: inadequate housing (Z59.1) and education (Z55.6)
[2024-08-27] MEDS: methylPREDNISolone SUCC 125 MG VIAL 60 MG IVP (11:03)
[2024-08-27] MEDS: Normal Saline Flush 10 ML SYR IVP (11:08)
[2024-08-27] MEDS: AZITHROMYCIN 500 MG in Normal Saline 250 ML 250 MG IVPB (12:53)
[2024-08-27] MEDS: Azithromycin 250 MG TAB 500 MG PO (13:43)
[2024-08-27] MEDS: LORazepam 0.5 MG TAB PO (14:20)
--- NOTE | 2024-08-27 15:49 | PDOC.CMDIS ---
Date of service: 08/27/24 Time of Service: 15:49 LACE Index Scoring Tool Questions: Length of Stay (in days): 2 Was the patient admitted via the E.D.?: Yes Comorbidities: Chronic Pulmonary Disease E.D. Visits: 1 Answers: Total Score: 8 Risk of Readmission: Low Risk Care Management Discharge Plan Reason for Hospitalization: Pneumonia Discharge Plan: Liza will discharge home with a plan to follow up with her PCP and community providers. Family provided transportation. Patient/Family Education Needs: Review discharge instructions, limitations and plan to follow up with community providers. Discuss ask me three and goals of self care. SDOH Health Related Social Needs: Health related social needs inadequate housing (Z59.1), education (Z55.6) Health related social needs details none mentioned
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
[2024-08-28 16:21] LABS: Streptococcus Pneumoniae Ag, U Negative (Negative)
== END 2024-08-27 17:38 | disposition home or self-care (01) | DRG 190 ==
LOC: ER 11:36 → MS 12:14
PROVIDERS: Admitting Provider Nurse Practitioner Family; Emergency Provider Emergency Medicine; PCP Family Medicine; Responsible Provider Nurse Practitioner Family; Visit Provider Nurse Practitioner Family
DX: J44.0 Chronic obstructive pulmonary disease with (acute) lower respiratory infection (principal); J18.9 Pneumonia, unspecified organism; J44.1 Chronic obstructive pulmonary disease with (acute) exacerbation; E05.90 Thyrotoxicosis, unspecified without thyrotoxic crisis or storm; E83.42 Hypomagnesemia; F41.9 Anxiety disorder, unspecified; Z66 Do not resuscitate; M85.80 Other specified disorders of bone density and structure, unspecified site; F32.A Depression, unspecified; R73.01 Impaired fasting glucose; G25.81 Restless legs syndrome; Z87.891 Personal history of nicotine dependence
CPT/HCPCS: 00123; 36410; 36415; 80048; 80053; 82805; 84145; 87040; 87449; 87637; 87641; 93005; 94640; 94761; 96361; 96365; 96367; 96368; 99285; J1650; 71045; 81003; 83605; 83735; 83880; 84443; 84484; 85025; 85610; 85730; 87070; 87205; 87899; 93010; 94664; 94760; 99223; 99232; 99239; J0131; J0456; J0696; J2919; J3475; J7614; J7620

== ENCOUNTER 2024-09-08 10:46 | Outpatient (CLI) | payer MEDICARE, BC, SELFPAY ==
[2024-09-08 13:22] LABS: ALT 40 U/L (14-59); AST 20 U/L (15-37); Albumin 3.3 g/dL (3.4-5.0); Alkaline Phosphatase 64 U/L (46-116); Anion Gap 4.7 mmol/L (3-11); BUN 21 mg/dL (7-18); Bilirubin, Total 0.55 mg/dL (0.2-1.0); CO2 33.3 mmol/L (21.0-32.0); CREATININE 0.8 mg/dL (0.55-1.02); Calcium 9.1 mg/dL (8.5-10.1); Chloride 107 mmol/L (98-107); Estimated GFR 77.27 (mL/min/1.73m2); Glucose 99 mg/dL (74-106); Potassium 3.7 mmol/L (3.5-5.1); Sodium 145 mmol/L (136-145); Total Protein 6.5 g/dL (6.4-8.2)
[2024-09-09 11:48] LABS: Hepatitis C Ab w Rflx HCV PCR Negative (Negative)
== END 2024-09-08 10:47 | disposition home or self-care (01) ==
PROVIDERS: PCP Family Medicine; Visit Provider Family Medicine
DX: Z11.59 Encounter for screening for other viral diseases (principal); I10 Essential (primary) hypertension
CPT/HCPCS: 36415; 80053; 86803

== ENCOUNTER 2025-04-26 02:23 | Outpatient (CLI) | payer MEDICARE, BC, SELFPAY ==
--- NOTE | 2025-04-26 07:00 | DI.MAMMO_ITS ---
Exam(s) MAMMO SCREENING EXAM: MAMMO SCREENING CLINICAL HISTORY: screening,Z12.39. TECHNIQUE: Bilateral full field digital CC and MLO mammographic images were obtained with 3D tomosynthesis and utilizing computer aided detection (CAD). COMPARISON: 2014 through 2023 FINDINGS: Masses: None seen. Architectural Distortion: None seen. Microcalcifications: No suspicious pleomorphic-type are seen. Skin Thickening/Nipple Retraction: None. IMPRESSION: 1. No significant interval change with no specific features of malignancy noted. 2. Unless there is more urgent need, annual screening mammography is recommended, as per [place] [employer] guidelines. BI-RADS Category 1-negative Breast Density - Category D - The breast are extremely dense, which lowers the sensitivity of the mammography. Breast density Category C or D implies that the patient has dense breast tissue. Dense breast tissue can make it harder to find cancer on a mammogram. Dense breast tissue is also associated with an increased risk of breast cancer. This information about the result of the mammogram report was provided to the patient to raise their awareness. Use this report when you speak with the patient about their risks for breast cancer, which includes their family history. At that time, you may recommend additional screening tests (Ultrasound or MRI) as these tests may add significant information. A negative radiographic report should not delay biopsy if a dominant or clinically suspicious mass is present. Up to ten percent of cancers are not identified on mammography. A negative report may reinforce clinical impression. Adenosis and dense breasts may obscure an underlying neoplasm. False positive reports average 6 to 10%. Patient will receive a letter notifying them of these results.
--- NOTE | 2025-04-26 07:00 | DI.CT_ITS ---
Exam(s) CT CHEST WO EXAM: CT CHEST WO CLINICAL HISTORY: worsening COPD,J44.9. TECHNIQUE: Imaging protocol: Axial computed tomography images were obtained and coronal and sagittal reformatted images were created and reviewed. Computer aided detection (CAD) was utilized. CONTRAST MATERIAL: Noncontrast COMPARISON: CT CT CHEST WO from 11/12/2018 CR XR PORTABLE CHEST AP from 08/25/2024 FINDINGS: Pulmonary parenchyma: No consolidation. Mild scarring at the posterior left upper lobe. Stable nodule at the left lung base. stable tiny nodules peripherally in the lateral right lower lobe. Interstitial changes: None mild Emphysema: Moderate to severe emphysematous changes Tracheobronchial tree: No mucous plugging. No bronchiectasis . Pleura: No effusion or pneumothorax. Heart: The heart is not dilated. The coronary arteries show mild calcifications. Aorta: Thoracic aorta non-dilated. Mild atherosclerotic changes. Lymph nodes: No enlarged lymph nodes. Bones: Degenerative changes are seen. No evidence of compression fracture. Upper abdomen: Unremarkable. Soft tissues: Unremarkable. IMPRESSION: No acute abnormality. Moderate to severe emphysematous changes. RADIATION DOSE DELIVERED: 85.08mGy.cm Total DLP 85.08mGy.cm Total DLP DATA REPOSITORY: All CT scans at this facility are submitted to the National Radiology Data Registry (NRDR) Dose Index Registry (DIR) with the [employer] (ACR). RADIATION OPTIMIZATION: All CT scans at this facility use at least one of these dose optimization techniques: automated exposure control; mA and/or kV adjustment per patient size (includes targeted exams where dose is matched to clinical indication); or iterative reconstruction.
== END 2025-04-26 02:43 ==
LOC: DI 02:23
PROVIDERS: PCP Family Medicine; Visit Provider Family Medicine
DX: Z12.31 Encounter for screening mammogram for malignant neoplasm of breast (principal); J44.9 Chronic obstructive pulmonary disease, unspecified
CPT/HCPCS: 71250; 77063; 77067

== ENCOUNTER → 2025-07-02 19:17 | Outpatient (CLI) | payer MEDICARE, BC, SELFPAY ==
--- NOTE | 2025-07-02 16:15 | DI.RAD_ITS ---
Exam(s) XR CHEST 2V PA LATERAL EXAM: XR CHEST 2V PA LATERAL CLINICAL HISTORY: R05.9 Cough, eval pathology TECHNIQUE: 2D digital imaging was performed. Two views. COMPARISON: CR XR PORTABLE CHEST AP from 08/25/[address] CHEST WO from 04/26/2025 FINDINGS: HEART: Normal size. Aorta: Not dilated. PULMONARY VASCULATURE: Normal. MEDIASTINUM: Unremarkable. LUNGS: Markedly hyperinflated. PLEURAL SPACE: Blunting at the costophrenic angles. No pleural effusion or pneumothorax. BONE:Unremarkable for age. SOFT TISSUES: Unremarkable. IMPRESSION: Emphysematous changes. No evidence of infiltrate. The preliminary [facility] report was reviewed. DATA REPOSITORY: RADIATION DOSE DELIVERED:
--- NOTE | 2025-07-02 17:14 | DI.[facility]_ITS ---
PROCEDURE INFORMATION: Exam: XR Chest Exam date and time: 07/02/2025 4:36 PM Age: 74 years old Clinical indication: Cough and shortness of breath; PT states they have a history of copd TECHNIQUE: Imaging protocol: Radiologic exam of the chest. Views: 2 views. COMPARISON: CT CHEST WO 26/04/2025 13:15 FINDINGS: Lungs: Large lung volumes. Emphysematous lung disease. No focal consolidation. Pleural spaces: Blunted posterior costophrenic angles and blunted lateral costophrenic angles. Heart/Mediastinum: Unremarkable. No cardiomegaly. Vasculature: Atherosclerotic disease. Diaphragm: Flattening and inversion of the hemidiaphragms. Bones/joints: Unremarkable for patient's age. IMPRESSION: 1. No acute cardiopulmonary findings. 2. Additional findings as discussed above. Dictated and Authenticated by: Roseanne Joaquin MD. Orderin Lyndon Coppola MD
== END ==
LOC: DI 19:19
PROVIDERS: PCP Family Medicine; Visit Provider Nurse Practitioner Family
DX: R05.9 Cough, unspecified (principal)
CPT/HCPCS: 71046